=== PATIENT | female | born 1940 | race Caucasian/White ===

== ENCOUNTER 2024-04-28 22:23 | Inpatient (IN) | payer OTHER ==
[2024-04-28] MEDS ORDERED: WATER FOR INJ,STERILE 10 ML ONE (22:57)
[2024-04-28] MEDS ORDERED: MORPHINE 2 MG/ML SYR ONE (22:57)
[2024-04-28] MEDS ORDERED: ZIPRASIDONE MESYLA 20 MG/VIAL IM ONE (22:57)
[2024-04-28] MEDS ORDERED: ONDANSETRON 4 MG/2 ML VIAL ONE (22:57)
[2024-04-28] MEDS ORDERED: KETOROLAC 30 MG/ML INJ ONE (22:57)
[2024-04-29 01:14] LABS: Absolute Eosinophils 0.1 K/uL (0-0.5); Absolute Lymphocytes (CBC) 1.8 K/uL (0.7-4.9); Absolute Monocytes 0.7 K/uL (0.1-1.3); Absolute Neutrophil 2.7 K/uL (1.8-8.0); Basophils % 0.5 % (0-1.3); Hematocrit 32.7 % (36.0-45.0); Hemoglobin 11.1 g/dL (12.0-15.0); Lymphocytes % 34.1 % (15.3-44.8); MCH 31.7 pg (27.0-35.0); MCHC 33.9 g/dL (32.0-36.0); MCV 93.7 fL (80-100); MPV 8.3 fL (7.6-11.3); Monocytes % 13.3 % (3.3-12.3); Neutrophils % 50.1 % (41.7-73.7); Nucleated Red Blood Cells % 0.2 % (0-0); Platelets 101 thou/uL (152-406); RBC Red Blood Cell Count 3.49 M/uL (3.86-4.86); Red Cell Distribution Width 15.8 % (12.1-15.2)
[2024-04-29 01:15] LABS: PT Prothrombin Time 18.7 SECONDS (9.4-12.5); Protime INR 1.7
[2024-04-29 01:28] LABS: Albumin 2.9 g/dL (3.4-5.0); Albumin/Globulin Ratio 0.7 (1.1-1.8); Anion Gap 8.1 mEq/L (5.0-15.0); Bilirubin Total 0.6 mg/dL (0.2-1.0); Globulin 3.9 g/dL (2.3-3.5); Potassium 3.1 mEq/L (3.5-5.1); Protein, Total 6.8 g/dL (6.4-8.2)
[2024-04-29] MEDS ORDERED: NA CHLORIDE 0.9% 500 ML ONE ×2 (01:32→04:20)
--- NOTE | 2024-04-29 03:46 | EDPHYS ---
Physician Documentation [facility] Name: Nikole Mejia Age: 83 yrs Sex: Female : 1940 Arrival Date: 04/28/2024 Time: 22:23 Bed [id number] Private MD: ORALIA Physician Sandip Sims HPI: 04/28 22:30 This 83 yrs old Female presents to ER via Unassigned with complaints of Fall sp4 Injury. 04/29 03:38 Patient is a very pleasant, heavily demented 83-year-old female presents from nursing [facility] home [facility] for acute fall X 2 out of the bed. Attending MD Keiko Lang . Patient on arrival not able to provide coherent history. Patient is heavily demented and does not have any signs of acute traumatic injury but seems to be bothered by her left hip. Past medical history includes epilepsy, hypothyroidism, type 2 diabetes, encephalopathy, essential hypertension, atrial fibrillation, acute respiratory failure with hypoxia, GERD, muscle weakness, additional history includes dysphagia, unsteady gait, lack of coordination, cognitive communication deficit, history of bilateral mastectomy. Patient is full code. Patient's medications include amiodarone 200 mg, lisinopril 40 mg daily, apixaban 5 mg twice daily, Keppra 500 mg twice daily, metformin 500 mg twice daily, omeprazole 20 mg daily, levothyroxine 75 mcg daily, metoprolol 50 mg 3 times a day, furosemide 20 mg daily.. Historical: - Allergies: 04/28 22:52 PENICILLINS; dd2 22:52 Codeine; dd2 22:52 Acetaminophen; dd2 - PMHx: 22:52 epilepsy; Hypothyroidism; Diabetes mellitus; Hypertensive disorder; Atrial dd2 fibrillation; GERD; ENCEPHALOPATHY; DYSPHAGIA; COGNITIVE COMMUNICATION DEFICIT; - Immunization history:: Adult Immunizations unknown. - Infectious Disease History:: NONE NOTED ON CHART. - Social history:: Smoking status: unknown. - Family history:: not pertinent. ROS: 04/29 03:53 Constitutional: Negative for fever, chills, and weight loss, sp4 All other systems are negative, Exam: 03:53 Constitutional: This is a well developed, well nourished patient who is awake, alert, sp4 patient is heavily demented with mild to moderate agitation on exam. Head/Face: Normocephalic, atraumatic. Eyes: Pupils equal round and reactive to light, extra-ocular motions intact. Lids and lashes normal. Conjunctiva and sclera are not injected. Cornea within normal limits. Periorbital areas with no swelling, redness, or edema. ENT: Nares patent. No nasal discharge, no septal abnormalities noted. Tympanic membranes are normal and external auditory canals are clear. Oropharynx with no redness, swelling, or masses, exudates, or evidence of obstruction, uvula midline. Mucous membranes moist. Neck: Trachea midline, no thyromegaly or masses palpated, and no cervical lymphadenopathy. Supple, full range of motion without nuchal rigidity, or vertebral point tenderness. Chest/axilla: Normal chest wall appearance and motion. Nontender with no deformity. No lesions are appreciated. Cardiovascular: Regular rate and rhythm with a normal S1 and S2. No gallops, murmurs, or rubs. Normal PMI, no JVD. No pulse deficits. Respiratory: Lungs have equal breath sounds bilaterally, clear to auscultation and percussion. No rales, rhonchi or wheezes noted. No increased work of breathing, no retractions or nasal flaring. Abdomen/GI: Soft, with normal bowel sounds. No distension or tympany. No guarding or rebound. No evidence of tenderness throughout. Back: No spinal tenderness. No costovertebral tenderness. Skin: Warm, dry with normal turgor. Normal color with no rashes, no lesions, and no evidence of cellulitis. MS/ Extremity: Pulses equal, no cyanosis. Neurovascular intact. Full, normal range of motion. left hip tenderness Neuro: Awake and alert, not oriented, Motor strength 5/5 in all extremities. Exam is limited. 03:58 ECG was reviewed by the Attending Physician. EKG at 03:41 Atrial fibrillation rate sp4 68. Atrial fibrillation with PVCs rate 68. Vital Signs: 04/28 22:35 BP 117 / 79; Pulse 79; Resp 16; Temp 98.2; Pulse Ox 98% ; Weight 83.91 kg; Height 5 ft. dd2 5 in. ; 23:20 BP 106 / 76; Pulse 62; Resp 16; Pulse Ox 97% ; dd2 04/29 00:30 BP 104 / 62; Pulse 67; Resp 15; Pulse Ox 92% on 2 lpm NC; dd2 02:16 BP 104 / 68; Pulse 86; Resp 14; Pulse Ox 98% on 2 lpm NC; dd2 02:50 BP 88 / 68; Pulse 76; Resp 14; Pulse Ox 100% on 2 lpm NC; dd2 03:30 BP 94 / 62; Pulse 76; Resp 13; Pulse Ox 99% on 2 lpm NC; dd2 04:58 BP 106 / 81; Pulse 88; Resp 14; Pulse Ox 100% on R/A; dd2 04/28 22:35 Body Mass Index 30.79 (83.91 kg, 165.1 cm) dd2 Daniela Coma Score: 03:53 Eye Response: spontaneous(4). Motor Response: localizes pain(5). Verbal Response: sp4 inappropriate words(3). Total: 12. MDM: 04/28 22:30 Medical Screening Exam initiated sp4 04/29 03:35 ED course: EXAM DESCRIPTION: XR CHEST 1 VIEW 04/28/2024 11:32 PM [facility]GET[employer]TER CLINICAL HISTORY: sp4 83 years, Female, Fall, chest pain. COMPARISON: None. FINDINGS: 1 view of the chest (AP portable projection) was obtained. Prior films were compared. There is mild hyperinflation. Mediastinum: The cardiomediastinal silhouette appears normal in size and shape. Lungs: No areas of consolidations or masses are identified. Heart: The heart is in the upper normal size. Thoracic aorta: The thoracic aorta demonstrate to be tortuous. Pulmonary vasculature: The pulmonary vasculature is normal in distribution. Pleura: The costophrenic angles demonstrate to be sharp. Osseous structures: The bony structures demonstrate to be within normal limits. Other: None. IMPRESSION: No acute cardiopulmonary disease. Mild hyperinflation. Electronically signed by: Wicho Lopez MD 04/28/2024. ED course: EXAM DESCRIPTION: XR FEMUR 2 VIEWS LEFT 04/28/2024 11:31 PM [employer]GETABLE [employer]TER CLINICAL HISTORY: 83 years, Female, Left leg pain. COMPARISON: None. FINDINGS: 2 X-ray views of the left femur (frontal and lateral projections) were performed. Bones: No areas of acute bony injuries were demonstrated. Soft tissues: No significant soft tissue swelling. Joints: Minimal degenerative changes left knee joint. Others: There are no gross intraosseous lesions. No periosteal reaction were seen. No definitive displaced fracture are identified, if symptoms persist, clinical correlation and/or further evaluation with CT scan and/or MRI could be of assistance. IMPRESSION: No areas of acute bony injuries were demonstrated. Minimal degenerative changes left knee joint. . ED course: EXAM DESCRIPTION: XR PELVIS 1 VIEW 04/28/2024 11:30 PM [employer]GETABLE C[employer]TER CLINICAL HISTORY: 83 years, Female, Fall, pelvic pain. COMPARISON: None. FINDINGS: 1 X-ray views of the pelvis (frontal view of the pelvis was obtained. Bones: There is diffuse bony osteopenia The pelvic rim is intact. No areas of acute bony injuries were demonstrated. Joints: The joint demonstrate to be within normal limits. Minimal early degenerative changes anterior superior aspect of the acetabulum. Minimal degenerative changes lower lumbar spine Soft tissue: No gross soft tissue abnormality is identified. There are no gross intraosseous lesions. No periosteal reaction were seen. Other: No definitive displaced fracture are identified, if symptoms persist, clinical correlation and/or further evaluation with CT scan and/or MRI could be of assistance. IMPRESSION: No areas of acute bony injuries were demonstrated. Minimal early degenerative changes bilateral hip joints. Diffuse bony osteopenia. . 04:00 Differential diagnosis: abrasion, closed head injury, contusion, fracture, laceration, sp4 multiple trauma, sprain, strain. Data reviewed: vital signs, nurses notes, lab test result(s), EKG, radiologic studies. Consideration of Admission/Observation Escalation of care including admission/observation considered. Management of patient was discussed with the following: Hospitalist: BEL MUKHERJEE . 04:06 ED course: PROCEDURE: CT Head and Cervical Spine Without Intravenous Contrast CLINICAL sp4 INDICATION: The patient is 83 years old and is Female; Traumatic fall. TECHNIQUE: Axial computed tomography images of the head/brain and cervical spine without intravenous contrast. Sagittal and coronal reformatted images were created and reviewed. This CT exam was performed using one or more of the following dose reduction techniques: automated exposure control, adjustment of the mA and/or kV according to patient size, and/or use of iterative reconstruction technique. COMPARISON: None. 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 Mild bilateral periventricular and deep white matter microangiopathy changes. Mild global cerebral atrophy with commensurate sulcal and ventricular enlargement, not greater than expected for patient age. No extra-axial fluid collection. No intracranial hemorrhage. No focal martinez-white matter differentiation abnormality. MIDLINE SHIFT: No midline shift. VENTRICLES: See above. SKULL: See below. SINUSES: Unremarkable as visualized. No acute sinusitis. MASTOID AIR CELLS: Unremarkable as visualized. No mastoid effusion. VERTEBRAE: Small probable posterior disc osteophyte versus focal calcification of the posterior longitudinal ligament demonstrated at the C5-6 and C6-7 levels. No acute fracture or acute vertebral body height loss. No significant subluxation. DISCS/SPINAL CANAL/NEURAL FORAMINA: No acute findings. No transtentorial herniation. No significant bony spinal canal stenosis. OTHER BONES/JOINTS: Unremarkable as visualized. No fracture of the calvarium or visualized facial bones. SOFT TISSUES: Unremarkable No abnormal prevertebral soft tissue swelling. VASCULATURE: Dense calcification of the central intracranial arteries. OTHER FINDINGS: Dens is intact. No dislocation. Craniocervical orientation is normal. IMPRESSION: 1. Chronic and senescent changes with no acute intracranial abnormality. No fracture of the calvarium or visualized facial bones. 2. No acute abnormality of the cervical spine.. 04:40 ED course: CT report - No aortic aneurysm. LYMPH NODES: Unremarkable No enlarged lymph sp4 nodes. IMPRESSION: 1. Age-indeterminate compression deformity of the T6 vertebral body with near vertebra plana defect. No bony retropulsion into the adjacent thoracic spinal canal. Recommend further evaluation by dedicated thoracic spine CT or MRI (most sensitive, and evaluate for marrow edema). 2. Small volume anti dependent intraluminal gas within the urinary bladder lumen. Recommend clinical correlation with history of recent Lange catheterization. Otherwise cannot exclude a possible non visualized fistulous formation between the urinary bladder and adjacent vaginal canal. Clinical correlation recommended. No intramural gas or perivesicular inflammation to suggest emphysematous cystitis. 3. Otherwise, no acute abnormality of the chest, abdomen, or pelvis. 4. Cardiomegaly with biatrial enlargement. 5. Severe multivessel coronary artery calcifications. 6. Ectasia of the main pulmonary artery, measuring up to 4.4 cm, suggesting pulmonary hypertension. 7. Colonic diverticulosis without evidence of acute diverticulitis. 8. Serpiginous sclerotic changes within the posterior aspect of the left humeral head, favoring avascular necrosis.. 04/28 22:29 Order name: CBC with Diff; Complete Time: : sp4 04/28 22:29 Order name: CMP; Complete Time: : sp4 04/28 22:30 Order name: PT-INR; Complete Time: 01:30 sp4 04/29 03:32 Order name: Troponin High Sensitivity; Complete Time: 04:39 sp4 04/29 03:32 Order name: BNP; Complete Time: 04:39 sp4 04/29 03:56 Order name: T4 Free; Complete Time: 04:39 EDMS 04/29 03:56 Order name: Thyroid Stimulating Hormone; Complete Time: 04:39 EDMS 04/29 05:00 Order name: Urinalysis w/ reflexes EDMS 04/29 05:00 Order name: CBC with Automated Diff EDMS 04/29 05:00 Order name: CBC with Automated Diff EDMS 04/29 05:00 Order name: Comprehensive Metabolic Panel EDMS 04/29 05:00 Order name: Comprehensive Metabolic Panel EDMS 04/28 22:28 Order name: Pelvis XRAY sp4 04/28 22:29 Order name: Femur Left XRAY sp4 04/28 22:29 Order name: Chest Single View XRAY 4 04/28 22:30 Order name: CT Head C Spine; Complete Time: 04:39 sp4 04/28 22:30 Order name: CT Chest Abdomen Pelvis W/O Contrast sp4 04/29 03:32 Order name: EKG; Complete Time: 03:32 sp4 04/29 05:00 Order name: Physical Therapy Consult EDCA 04/28 22:29 Order name: Saline Lock; Complete Time: 22:45 sp4 04/28 22:29 Order name: IV Saline Lock; Complete Time: 22:45 sp4 04/28 22:29 Order name: Labs collected and sent; Complete Time: 22:45 sp4 04/28 23:03 Order name: Misc. Order: RECOLLECT all; Complete Time: 23:16 ty 04/29 03:32 Order name: EKG - Nurse/Tech; Complete Time: 04:10 sp4 EC:58 Rate is 68 beats/min. Rhythm is irregularly irregular, A fib with Occasional PVCs. QRS sp4 [place] is Normal. QRS interval is normal. QT interval is normal. No Q waves. T waves are Normal. No ST changes noted. Clinical impression: No evidence of ischemia. Interpreted by me. Reviewed by me. Administered Medications: 04/28 23:13 Drug: TORadol - Ketorolac IVP 15 mg IVP once Route: IVP; Site: left antecubital; bm8 23:28 Follow up: Response: No adverse reaction dd2 23:13 Drug: Geodon IM 20 mg IM once Route: IM; Site: left gluteus; bm8 23:28 Follow up: Response: No adverse reaction dd2 23:14 Drug: morphine IVP or IV 2 mg IVP once over 4 mins Route: IVP; Infused Over: 4 mins; bm8 Site: left antecubital; 23:29 Follow up: Response: No adverse reaction dd2 23:14 Drug: Ondansetron IVP 4 mg IVP once; over 2 minutes Route: IVP; Site: left antecubital; bm8 23:29 Follow up: Response: No adverse reaction dd2 04/29 01:36 Drug: NS 0.9% IV 500 ml IV at bolus once; to be given as a bolus over 30 minutes Route: dd2 IV; Rate: bolus; Site: right antecubital; 01:51 Follow up: Response: No adverse reaction dd2 02:06 Follow up: IV Status: Completed infusion; IV Intake: 500ml dd2 04:21 Drug: NS 0.9% IV 500 ml IV at bolus once; to be given as a bolus over 30 minutes Route: dd2 IV; Rate: bolus; Site: left antecubital; 04:36 Follow up: Response: No adverse reaction dd2 04:51 Follow up: IV Status: Completed infusion; IV Intake: 500ml dd2 04:28 Drug: Solu-CORTEF IVP 100 mg IVP once Route: IVP; Site: left antecubital; dd2 04:43 Follow up: Response: No adverse reaction dd2 04:29 Drug: Albumin IVPB 25 grams 100 ml IVPB once; (Note: Albumin 25% concentration) Volume: dd2 100 ml; Route: IVPB; Site: left antecubital; 04:44 Follow up: Response: No adverse reaction dd2 05:29 Follow up: IV Status: Completed infusion; IV Intake: 100ml dd2 05:38 Drug: Albumin IVPB 25 grams 100 ml IVPB once; (Note: Albumin 25% concentration) Volume: dd2 100 ml; Route: IVPB; Site: left antecubital; 05:53 Follow up: Response: No adverse reaction dd2 06:31 Follow up: IV Status: Completed infusion; IV Intake: 100ml dd2 Disposition Summary: 04/29/24 03:45 Hospitalization Ordered Notes: Hospitalization Status: Observation sp4 Provider: Edson [email or web address] Location: Telemetry/MedSurg (observation) sp4 Condition: Fair sp4 Problem: new sp4 Symptoms: have improved sp4 Bed/Room Type: Standard sp4 Room Assignment: 230(04/29/24 05:22) kl Diagnosis - Hypotension due to drugs sp4 - Acute Fall in [facility], Acute Agitation Requiring sedation, Hypotensive sp4 Episode secondary to Geodon, Left hip contusion, Atrial Fibrillation with RVR Forms: - Medication Reconciliation Form sp4 - SBAR form sp4 - Leadership Thank You Letter sp4 Signatures: Dispatcher [employer] EDMS Joseline Higginbotham RN RN Sandip Duong MD MD sp4 Homero Gomez Brad RN RN bm8 TRAVIS ESPINOSA RN RN dd2 Corrections: (The following items were deleted from the chart) 04/28 22:29 22:29 Pelvis+RAD.RAD.BRZ ordered. EDMS EDMS 04/29 03:55 03:43 THYROID STIMULAT HORMONE+C.LAB.BRZ ordered. EDMS EDMS 03:55 03:43 T4 FREE+C.LAB.BRZ ordered. EDCA EDMS 05:22 03:45 sp4 kl
--- NOTE | 2024-04-29 03:46 | ER ---
Nurse's Notes [facility] Name: Nikole Mejia Age: 83 yrs Sex: Female : 1940 Arrival Date: 04/28/2024 Time: 22:23 Bed [id number] Private MD: Diagnosis: Hypotension due to drugs;Acute Fall in Shelter, Acute Agitation Requiring sedation, Hypotensive Episode secondary to Geodon, Left hip contusion, Atrial Fibrillation with RVR Presentation: 04/28 22:35 Chief complaint: EMS states: Pt brought in via EMS from [facility] for fall x2. 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 Pt c/o Left Leg/thigh pain and Left sided head pain. Pt is AAOX2 baseline. Coronavirus screen: At this time, the client does not indicate any symptoms associated with coronavirus-19. Ebola Screen: No symptoms or risks identified at this time. Initial Sepsis Screen: Does the patient meet any 2 criteria? No. Patient's initial sepsis screen is negative. Does the patient have a suspected source of infection? No. Patient's initial sepsis screen is negative. Risk Assessment: Do you want to hurt yourself or someone else? Patient reports no desire to harm self or others. Onset of symptoms was April 28, 2024. 22:35 Method Of Arrival: EMS: [facility] dd2 22:35 Acuity: YECENIA 3 dd2 Triage Assessment: 22:52 General: Appears uncomfortable, Behavior is calm, cooperative. Pain: Complains of pain dd2 in left scientologist and left leg Unable to use pain scale. Does not appear to understand pain scale. EENT: No deficits noted. No signs and/or symptoms were reported regarding the EENT system. Neuro: Level of Consciousness is awake, alert, obeys commands, confused, Oriented to person, Facial symmetry appears normal, Facial symmetry: tongue is midline. Cardiovascular: Heart tones S1 S2 present Patient's skin is warm and dry. Respiratory: No deficits noted. Airway is patent Respiratory effort is even, unlabored, Respiratory pattern is regular, symmetrical. GI: No signs and/or symptoms were reported involving the gastrointestinal system. Abdomen is non-distended, Bowel sounds present X 4 quads. Abd is soft and non tender. : No signs and/or symptoms were reported regarding the genitourinary system. Derm: No signs and/or symptoms reported regarding the dermatologic system. Musculoskeletal: Circulation, motion, and sensation intact. Range of motion: limited in left hip Reports pain in left leg. Historical: - Allergies: 22:52 PENICILLINS; dd2 22:52 Codeine; dd2 22:52 Acetaminophen; dd2 - PMHx: 22:52 epilepsy; Hypothyroidism; Diabetes mellitus; Hypertensive disorder; Atrial dd2 fibrillation; GERD; ENCEPHALOPATHY; DYSPHAGIA; COGNITIVE COMMUNICATION DEFICIT; - Immunization history:: Adult Immunizations unknown. - Infectious Disease History:: NONE NOTED ON CHART. - Social history:: Smoking status: unknown. - Family history:: not pertinent. Screenin:00 [facility] ED Fall Risk Assessment (Adult) History of falling in the last 3 months, dd2 including since admission Yes- physiologic fall (2 pts) Confusion or Disorientation Yes (5 pts) Intoxicated or Sedated No (0 pts) Impaired Gait Yes (1 pt) Mobility Assist Device Used Yes (1 pt) Altered Elimination Yes (1 pt) Score/Fall Risk Level 3 or more points = High Risk Oriented to surroundings, Maintained a safe environment, Educated pt \T\ family on fall prevention, incl call for assistance when getting out of bed, Assessed \T\ reinforced patient's understanding of fall precautions, Hourly rounding (assess needs \T\ fall precautionary measures) done, Implemented a Fall Risk Plan of Care, Apply high fall risk patient identification: yellow non skid footwear/ fall signage. Abuse screen: Denies threats or abuse. Nutritional screening: No deficits noted. Tuberculosis screening: No symptoms or risk factors identified. Assessment: 23:00 Reassessment: SEE TRIAGE NOTE FOR FULL ASSESSMENT. dd2 04/29 02:17 Reassessment: Patient and/or family updated on plan of care and expected duration. Pain dd2 level reassessed. Pt resting quietly at this time. Respirations even and unlabored. NAD noted. 05:14 Reassessment: Pt resting quietly. Respirations even and unlabored. Skin warm and dry. dd2 BP improved. NAD noted. Vital Signs: 04/28 22:35 BP 117 / 79; Pulse 79; Resp 16; Temp 98.2; Pulse Ox 98% ; Weight 83.91 kg; Height 5 ft. dd2 5 in. ; 23:20 BP 106 / 76; Pulse 62; Resp 16; Pulse Ox 97% ; dd2 04/29 00:30 BP 104 / 62; Pulse 67; Resp 15; Pulse Ox 92% on 2 lpm NC; dd2 02:16 BP 104 / 68; Pulse 86; Resp 14; Pulse Ox 98% on 2 lpm NC; dd2 02:50 BP 88 / 68; Pulse 76; Resp 14; Pulse Ox 100% on 2 lpm NC; dd2 03:30 BP 94 / 62; Pulse 76; Resp 13; Pulse Ox 99% on 2 lpm NC; dd2 04:58 BP 106 / 81; Pulse 88; Resp 14; Pulse Ox 100% on R/A; dd2 04/28 22:35 Body Mass Index 30.79 (83.91 kg, 165.1 cm) dd2 [place] Coma Score: 03:53 Eye Response: spontaneous(4). Motor Response: localizes pain(5). Verbal Response: sp4 inappropriate words(3). Total: 12. ED Course: 04/28 22:25 Patient arrived in ED. rv1 22:28 Sandip Sims MD is Attending Physician. sp4 22:44 TRAVIS ESPINOSA RN is Primary Nurse. dd2 22:52 Triage completed. dd2 22:52 Arm band placed on right wrist. Patient placed in an exam room, on a stretcher, on dd2 pulse oximetry. 22:58 Pelvis XRAY In Process Unspecified. EDMS 22:58 Femur Left XRAY In Process Unspecified. EDMS 22:58 Chest Single View XRAY In Process Unspecified. EDMS 23:00 Patient has correct armband on for positive identification. Allergy band placed. Bed in dd2 low position. Call light in reach. Side rails up X2. Client placed on continuous cardiac and pulse oximetry monitoring. NIBP monitoring applied. Door closed. Noise minimized. Warm blanket given. Pillow given. Verbal reassurance given. 23:00 No provider procedures requiring assistance completed. Initial lab(s) drawn, by me, dd2 sent to lab. Inserted saline lock: 20 gauge in left antecubital area, using aseptic technique. Blood collected. Flushed with 10 mL NS. Patient maintains SpO2 saturation greater than 95% on room air. 23:16 PT-INR Sent. rv1 04/29 00:49 CT Head C Spine In Process Unspecified. EDMS 00:49 CT Chest Abdomen Pelvis W/O Contrast In Process Unspecified. EDMS 01:04 Inserted saline lock: 22 gauge in right antecubital area, using aseptic technique. rv1 Blood collected. Flushed with 10 mL NS. 03:43 Edson Mccauley MD is Hospitalizing Provider. sp4 04:05 Removal of peripheral IV. Catheter intact, dressing applied. dd2 04:09 Thyroid Stimulating Hormone Sent. dd2 04:09 T4 Free Sent. dd2 04:11 BNP Sent. dd2 04:11 Troponin High Sensitivity Sent. dd2 04:11 Inserted saline lock: 22 gauge in left antecubital area, using aseptic technique. Blood dd2 collected. Flushed with 10 mL NS Missed attempt(s): 22 gauge in left antecubital area. Bleeding controlled, band aid applied, catheter tip intact. 06:10 Provided Education on: call light, medications. Report given to SBAR SENT TO [facility] yan 2ND FLOOR. Administered Medications: 04/28 23:13 Drug: TORadol - Ketorolac IVP 15 mg IVP once Route: IVP; Site: left antecubital; bm8 23:28 Follow up: Response: No adverse reaction dd2 23:13 Drug: Geodon IM 20 mg IM once Route: IM; Site: left gluteus; bm8 23:28 Follow up: Response: No adverse reaction dd2 23:14 Drug: morphine IVP or IV 2 mg IVP once over 4 mins Route: IVP; Infused Over: 4 mins; bm8 Site: left antecubital; 23:29 Follow up: Response: No adverse reaction dd2 23:14 Drug: Ondansetron IVP 4 mg IVP once; over 2 minutes Route: IVP; Site: left antecubital; bm8 23:29 Follow up: Response: No adverse reaction dd2 04/29 01:36 Drug: NS 0.9% IV 500 ml IV at bolus once; to be given as a bolus over 30 minutes Route: dd2 IV; Rate: bolus; Site: right antecubital; 01:51 Follow up: Response: No adverse reaction dd2 02:06 Follow up: IV Status: Completed infusion; IV Intake: 500ml dd2 04:21 Drug: NS 0.9% IV 500 ml IV at bolus once; to be given as a bolus over 30 minutes Route: dd2 IV; Rate: bolus; Site: left antecubital; 04:36 Follow up: Response: No adverse reaction dd2 04:51 Follow up: IV Status: Completed infusion; IV Intake: 500ml dd2 04:28 Drug: Solu-CORTEF IVP 100 mg IVP once Route: IVP; Site: left antecubital; dd2 04:43 Follow up: Response: No adverse reaction dd2 04:29 Drug: Albumin IVPB 25 grams 100 ml IVPB once; (Note: Albumin 25% concentration) Volume: dd2 100 ml; Route: IVPB; Site: left antecubital; 04:44 Follow up: Response: No adverse reaction dd2 05:29 Follow up: IV Status: Completed infusion; IV Intake: 100ml dd2 05:38 Drug: Albumin IVPB 25 grams 100 ml IVPB once; (Note: Albumin 25% concentration) Volume: dd2 100 ml; Route: IVPB; Site: left antecubital; 05:53 Follow up: Response: No adverse reaction dd2 06:31 Follow up: IV Status: Completed infusion; IV Intake: 100ml dd2 Medication: 04/28 23:20 VIS not applicable for this client. dd2 Intake: 1106 02:06 IV: 500ml; Total: 500ml. dd2 04:51 IV: 500ml; Total: 1000ml. dd2 05:29 IV: 100ml; Total: 1100ml. dd2 06:31 IV: 100ml; Total: 1200ml. dd2 Outcome: 03:45 Decision to Hospitalize by Provider. sp4 06:39 Admitted to Med/surg accompanied by nurse, via stretcher, room 230, with chart, dd2 06:39 Condition: stable 06:39 Instructed on the need for admit, 06:40 Patient left the ED. dd2 Signatures: Dispatcher [employer] EDNani Delgado Sergey, MD MD sp4 Sumanth Amezquita RN RN bm8 TRAVIS ESPINOSA RN RN dd2 Corrections: (The following items were deleted from the chart) 04:16 02:16 BP 104 / 68; Pulse 86bpm; Resp 14bpm; Pulse Ox 98%; dd2 dd2 04:16 00:30 BP 104 / 62; Pulse 67bpm; Resp 15bpm; Pulse Ox 92%; dd2 dd2 04:16 02:50 BP 88 / 68; Pulse 76bpm; Resp 14bpm; Pulse Ox 100%; dd2 dd2
[2024-04-29 03:48] LABS: Troponin High Sensitivity 16.1 pg/mL (<58.9)
--- NOTE | 2024-04-29 04:07 | RAD REPORT ---
PROCEDURE: CT Head and Cervical Spine Without Intravenous Contrast CLINICAL INDICATION: The patient is 83 years old and is Female; Traumatic fall. TECHNIQUE: Axial computed tomography images of the head/brain and cervical spine without intravenous contrast. Sagittal and coronal reformatted images were created and reviewed. This CT exam was performed using one or more of the following dose reduction techniques: automated exposure control, adjustmen t of the mA and/or kV according to patient size, and/or use of iterative reconstruction technique. COMPARISON: None. 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 Mild bilateral periventricular and deep white matter microangiopathy changes. Mild global cerebral atrophy with commensurate sulcal and ventricular enlargement, not greate r than expected for patient age. No extra-axial fluid collection. No intracranial hemorrhage. No focal martinez-white matter differentiation abnormality. MIDLINE SHIFT: No midline shift. VENTRICLES: See above. SKULL: See below. SINUSES: Unremarkable as visualized. No acute sinusitis. MASTOID AIR CELLS: Unremarkable as visualized. No mastoid effusion. VERTEBRAE: Small probable posterior disc osteophyte versus focal calcification of the posterior lyn gitudinal ligament demonstrated at the C5-6 and C6-7 levels. No acute fracture or acute vertebral body height loss. No significant subluxation. DISCS/SPINAL CANAL/NEURAL FORAMINA: No acute findings. No transtentorial herniation. No significant bony spinal canal stenosis. OTHER BONES/JOINTS: Unremarkable as visualized. No fracture of the calvarium or visualized facial bones. SOFT TISSUES: Unremarkable No abnormal prevertebral soft tissue swelling. VASCULATURE: Dense calcification of the central intracranial arteries. OTHER FINDINGS: Dens is intact. No dislocation. Craniocervical orientation is normal. IMPRESSION: 1. Chronic and senescent changes with no acute intracranial abnormality. No fracture of the calvari um or visualized facial bones. 2. No acute abnormality of the cervical spine. Electronically signed by: Milton Brown MD 04/29/2024 04:03 AM [facility] Due to temporary technical issues with the PACS/[employer] reporting system, reports are being mony d by the in-house radiologist without review as a courtesy to ensure prompt reporting the interpreting radiologist is fully responsible for the content of the report. Transcribed Date/Time: 04/29/2024 4:06 AM
[2024-04-29] MEDS ORDERED: HYDROCORTISONE SUC 100 MG INJ ONE (04:19)
[2024-04-29] MEDS ORDERED: ALBUMIN HUMAN 25% 100 ML IV ONE ×2 (04:20→04:47)
[2024-04-29 04:37] LABS: Thyroid Stimulating Hormone 7.76 uIU/mL (0.358-3.740)
--- NOTE | 2024-04-29 04:53 | P.HP ---
Certification for Inpatient Patient admitted to: Observation With expected LOS: <2 Midnights Practitioner: I am a practitioner with admitting privileges, knowledge of patient current condition, hospital course, and medical plan of care. Services: Services provided to patient in accordance with Admission requirements found in Title 42 Section 412.3 of the Code of Federal Regulations Patient History Date of Service: 04/29/24 Reason for admission: Fall History of Present Illness: 83 yrs old Female with past medical history of dementia, seizure disorder, hypothyroidism, diabetes, hypertension, atrial fibrillation, GERD, encephalopathy, dysphagia, cognitive communication deficit was brought from alf where she had multiple falls. Patient has dementia and is pleasa ntly confused and has not been able to give any history. Hence most of the history is obtained from the chart review and also talking to the ER physician. Patient denies any pain. Denies any chest pain or shortness of breath. No fever nausea vomiting or diarrhea. Patient was assessed in the ER for trauma workup which were negative. Patient had a hypotensive event following medication and was admitted for close monitoring. Denies any fever or chills. Patient responded well to IV fluids and albumin and has been doing better while in the ER. Patient is full code. - Past Medical/Surgical History Past Medical History: Reviewed- Non-Contributory -: epilepsy; Hypothyroidism; Diabetes mellitus; Hypertensive disorder Past Surgical History: Reviewed- Non-Contributory - Family History Family History: Reviewed- Non-Contributory - Social History Smoking Status: Never smoker Review of Systems is unable to be obtained Physical Examination - Vital Signs Temperature: 97.2 F Blood Pressure: 106/72 Pulse: 84 Respirations: 18 Pulse Ox (%): 94 - Physical Exam General: Alert, Demented HEENT: Atraumatic, Normocephalic Neck: Supple Respiratory: Clear to auscultation bilaterally, Normal air movement Cardiovascular: Regular rate/rhythm, Normal S1 S2 Capillary refill: <2 Seconds Gastrointestinal: Soft and benign, W/out hepatosplenomegaly Musculoskeletal: No clubbing, No swelling Integumentary: No rashes Neurological: Other (Alert, Awake ), Dementia Lymphatics: No axilla or inguinal lymphadenopathy - Studies Laboratory Data (last 24 hrs) 04/29/24 04/29/24 04/29/24 01:01 01:01 01:01 WBC 5.40 Hgb 11.1 L Hct 32.7 L Plt Count 101 L PT 18.7 H INR 1.70 Sodium 143 Potassium 3.1 L BUN 29 H Creatinine 1.58 H Glucose 99 Total Bilirubin 0.6 AST 23 ALT 31 Alkaline Phosphatase 69 Assessment and Plan - Plan Multiple falls Pain control CT findings negative for any acute fracture PT eval Hypotensive episode Resolved with fluids Monitor closely History of hypertension Antihypertensives held for now MIKAEL Hypokalemia Monitor renal parameters Electrolytes monitor and replace accordingly Diabetes Insulin sliding scale Accu-Chek before every meal and at bedtime Advanced dementia Supportive management Continue home medications Seizure disorder, Continue home medications Hypothyroidism TSH level monitor Titrate Synthroid GI/DVT prophylaxis Advanced directive full code Discharge Plan: Usp Plan to discharge in: 24 Hours - Advance Directives Does patient have a Living Will: No Does patient have a Durable POA for Healthcare: No - Code Status/Comfort Care Code Status: Full Code Time Spent Managing Pts Care (In Minutes): 48
[2024-04-29] MEDS ORDERED: ONDANSETRON 4 MG/2 ML VIAL IV PRN (04:55)
--- NOTE | 2024-04-29 05:53 | RAD REPORT ---
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 COMPARISON: None. FINDINGS: 1 view of the chest (AP portable projection) was obtained. Prior films were compared. There is mild hyperinflation. Mediastinum: The cardiomediastinal silhouette appears normal in size and shape. Lungs: No areas of consolidations or masses are identified. Heart: The heart is in the upper normal size. Thoracic aorta: The thoracic aorta demonstrate to be tortuous. Pulmonary vasculature: The pulmonary vasculature is normal in distribution. Pleura: The costophrenic angles demonstrate to be sharp. Osseous structures: The bony structures demonstrate to be within normal limits. Other: None. IMPRESSION: No acute cardiopulmonary disease. Mild hyperinflation. Electronically signed by: Wicho Lopez MD 04/28/2024 11:48 PM WORK MEASUREMENT ENGINEER Due to temporary technical issues with the PACS/[employer] reporting system, reports are being mony d by the in-house radiologist without review as a courtesy to ensure prompt reporting the interpreting radiologist is fully responsible for the content of the report. Transcribed Date/Time: 04/29/2024 5:53 AM
--- NOTE | 2024-04-29 05:53 | RAD REPORT ---
EXAM DESCRIPTION: XR FEMUR 2 VIEWS LEFT 04/28/2024 11:31 PM [facility] CLINICAL HISTORY: 83 years, Female, Left leg pain. COMPARISON: None. FINDINGS: 2 X-ray views of the left femur (frontal and lateral projections) were performed. Bones: No areas of acute bony injuries were demonstrated. Soft tissues: No significant soft tissue swelling. Joints: Minimal degenerative changes left knee joint. Others: There are no gross intraosseous lesions. No periosteal reaction were seen. No definitive di splaced fracture are identified, if symptoms persist, clinical correlation and/or further evaluation with CT scan and/or MRI could be of assistance. IMPRESSION: No areas of acute bony injuries were demonstrated. Minimal degenerative changes left knee joint. Electronically signed by: Wicho Lopez MD 04/28/2024 11:43 PM [facility] Due to temporary technical issues with the PACS/[employer] reporting system, reports are being mony d by the in-house radiologist without review as a courtesy to ensure prompt reporting the interpreting radiologist is fully responsible for the content of the report. Transcribed Date/Time: 04/29/2024 5:53 AM
--- NOTE | 2024-04-29 05:54 | RAD REPORT ---
EXAM DESCRIPTION: XR PELVIS 1 VIEW 04/28/2024 11:30 PM UPPER CUTTER OUT CLINICAL HISTORY: 83 years, Female, Fall, pelvic pain. COMPARISON: None. FINDINGS: 1 X-ray views of the pelvis (frontal view of the pelvis was obtained. Bones: There is diffuse bony osteopenia The pelvic rim is intact. No areas of acute bony injuries wer e demonstrated. Joints: The joint demonstrate to be within normal limits. Minimal early degenerative changes anterior superior aspect of the acetabulum. Minimal degenerative changes lower lumbar spine Soft tissue: No gross soft tissue abnormality is identified. There are no gross intraosseous lesion s. No periosteal reaction were seen. Other: No definitive displaced fracture are identified, if symptoms persist, clinical correlation and /or further evaluation with CT scan and/or MRI could be of assistance. IMPRESSION: No areas of acute bony injuries were demonstrated. Minimal early degenerative changes bilateral hip joints. Diffuse bony osteopenia. Electronically signed by: Wicho Lopez MD 04/28/2024 11:36 PM [facility] Due to temporary technical issues with the PACS/[employer] reporting system, reports are being mony d by the in-house radiologist without review as a courtesy to ensure prompt reporting the interpreting radiologist is fully responsible for the content of the report. Transcribed Date/Time: 04/29/2024 5:54 AM
--- NOTE | 2024-04-29 06:12 | RAD REPORT ---
PROCEDURE: CT Chest, Abdomen and Pelvis Without Intravenous Contrast CLINICAL INDICATION: The patient is 83 years old and is Female; Traumatic fall. TECHNIQUE: Axial computed tomography images of the chest, abdomen and pelvis without intravenous contrast. Sag ittal and coronal reformatted images were created and reviewed. This CT exam was performed using one or more of the following dose reduction techniques: automated exposure control, adjustment of t he mA and/or kV according to patient size, and/or use of iterative reconstruction technique. COMPARISON: XR Pelvis 04/28/2024 and XR Chest 04/28/2024. FINDINGS: CHEST: LUNGS: Subsegmental atelectasis noted in the dependent right lung parenchyma, with patient lying on right side. No additional focal consolidation. No mass. PLEURAL SPACE: Unremarkable No significant effusion. No pneumothorax. HEART: Cardiomegaly with biatrial enlargement. ABDOMEN: LIVER: Unremarkable GALLBLADDER AND BILE DUCTS: Unremarkable No calcified stones. No ductal dilation. PANCREAS: Diffusely atrophic appearance of the pancreas with no ductal dilatation or solid or cysti c mass appreciated. SPLEEN: Unremarkable No splenomegaly. ADRENALS: Unremarkable No mass. KIDNEYS AND URETERS: Unremarkable No obstructing stones. No hydronephrosis. STOMACH AND BOWEL: Colonic diverticulosis without evidence of acute diverticulitis. No obstruction. PELVIS: APPENDIX: No findings to suggest acute appendicitis. BLADDER: Small volume antidependent intraluminal gas within the urinary bladder lumen. No stones. REPRODUCTIVE: Presumed hysterectomy. CHEST, ABDOMEN and PELVIS: INTRAPERITONEAL SPACE: Unremarkable No significant fluid collection. No free air. BONES/JOINTS: Remote fracture of the right coracoid process. Remote fracture of the lateral aspect of the right clavicle. Age-indeterminate compression deformity of the T6 vertebral body with near vertebra plana def ect. No bony retropulsion into the adjacent thoracic spinal canal. Serpiginous sclerotic changes within the posterior aspect of the left humeral head, favoring avascular necrosis. No dislocation. SOFT TISSUES: Unremarkable VASCULATURE: Severe multivessel coronary artery calcifications. Ectasia of the main pulmonary artery, measuring up to 4.4 cm, suggesting pulmonary hypertensi on. No aortic aneurysm. LYMPH NODES: Unremarkable No enlarged lymph nodes. IMPRESSION: 1. Age-indeterminate compression deformity of the T6 vertebral body with near vertebra plana defect . No bony retropulsion into the adjacent thoracic spinal canal. Recommend further evaluation by dedicated thoracic spine CT or MRI (most sensitive, and evaluate for marrow edema). 2. Small volume antidependent intraluminal gas within the urinary bladder lumen. Recommend clinical correlation with history of recent Lange catheterization. Otherwise cannot exclude a possible nonvisualized fistulous formation between the urinary bladder and adjacent vaginal canal. Clinical co rrelation recommended. No intramural gas or perivesicular inflammation to suggest emphysematous cystitis. 3. Otherwise, no acute abnormality of the chest, abdomen, or pelvis. 4. Cardiomegaly with biatrial enlargement. 5. Severe multivessel coronary artery calcifications. 6. Ectasia of the main pulmonary artery, measuring up to 4.4 cm, suggesting pulmonary hypertension. 7. Colonic diverticulosis without evidence of acute diverticulitis. 8. Serpiginous sclerotic changes within the posterior aspect of the left humeral head, favoring torsten scular necrosis. Electronically signed by: Milton Brown MD 04/29/2024 04:23 AM [facility] Due to temporary technical issues with the PACS/[employer] reporting system, reports are being mony d by the in-house radiologist without review as a courtesy to ensure prompt reporting the interpreting radiologist is fully responsible for the content of the report. Transcribed Date/Time: 04/29/2024 6:12 AM
[2024-04-29] MEDS: NA CHLORIDE 0.9% 1,000 ML IV SCH (09:09)
--- NOTE | 2024-04-29 12:04 | P.PN ---
Date of Service: 04/29/24 Brief internal medicine note Patient was examined, medical record reviewed 83 yrs old Female with past medical history of advanced dementia, seizure disorder, hypothyroidism, diabetes, hypertension, atrial fibrillation, GERD, she was brought from longterm where she had multiple falls, no fracture or acute injury by imaging study at ED, noted to have 1 episode of hypotension with blood pressure 88/68 mmHg, received IV albumin and admitted on general medical floor for observation. 1. Recent falls No fracture or injury by CT of head, C-spine, chest, abdomen, pelvis, prescription x-ray of pelvis and femur, chest x-ray #2 an episode of hypotension, resolved Systolic blood pressure over 100 mmHg since admission after IV albumin Continue monitor, hold any hypertensive agents #3 altered mental status in the setting of advanced dementia Nonverbal and uncommunicable, normal CT of the head at ED, no sign of metabolic encephalopathy or serious infection Could be at her baseline due to advanced dementia #4 mild hypokalemia Serum potassium 3.1, will repeat electrolytes tomorrow after oral potassium 40 mEq p.o. x 1 DVT prophylaxis; sequential compression device Disposition; plan to send her back to longterm tomorrow if her blood pressure remains stable
[2024-04-29 12:09] LABS: Specific Gravity 1.016 (1.005-1.030); Sqamous Epithelial <5 /HPF (None Seen); Urine Bacteria 20-50 /HPF (<20); Urine Bilirubin NEGATIVE (Negative); Urine Blood Negative (Negative); Urine Clarity Extremely Turbid (Clear); Urine Color Yellow (Yellow); Urine Culture Reflex Order REFLEXED; Urine Glucose NEGATIVE (Negative); Urine Ketones NEGATIVE (Negative); Urine Microscopic Reflex YN ORDER UMIC; Urine Mucus Slight /HPF (None Seen); Urine Nitrite NEGATIVE (Negative); Urine Protein TRACE (Negative); Urine Urobilinogen Normal (Normal); Urine WBC 20-50 /HPF (<5)
[2024-04-29] MEDS: POTASSIUM CL SA 10 MEQ TAB PO ONE (15:45)
[2024-04-29] MEDS: ACETAMINOPHEN 325 MG TABLET PO PRN (23:52)
[2024-04-30 04:28] VITALS: TEMP 97.8
[2024-04-30 05:22] LABS: Absolute Eosinophils 0.1 K/uL (0-0.5); Absolute Lymphocytes (CBC) 1.7 K/uL (0.7-4.9); Absolute Monocytes 0.7 K/uL (0.1-1.3); Absolute Neutrophil 2.5 K/uL (1.8-8.0); Basophils % 0.5 % (0-1.3); Eosinophils % 1.4 % (0-4.4); Hematocrit 26.8 % (36.0-45.0); MCH 31.7 pg (27.0-35.0); MCHC 33.6 g/dL (32.0-36.0); MCV 94.5 fL (80-100); MPV 8.9 fL (7.6-11.3); Monocytes % 13.2 % (3.3-12.3); Neutrophils % 49.9 % (41.7-73.7); Platelets 75 thou/uL (152-406); RBC Red Blood Cell Count 2.83 M/uL (3.86-4.86); Red Cell Distribution Width 15.7 % (12.1-15.2)
[2024-04-30 05:41] LABS: Albumin 2.8 g/dL (3.4-5.0); Albumin/Globulin Ratio 0.9 (1.1-1.8); Anion Gap 5.7 mEq/L (5.0-15.0); Bilirubin Total 0.5 mg/dL (0.2-1.0); Potassium 3.7 mEq/L (3.5-5.1); Protein, Total 5.8 g/dL (6.4-8.2)
[2024-04-30 07:13] VITALS: BMI 30.7
[2024-04-30] MEDS: POTASSIUM 25 MEQ EFFERV TAB PO ONE (08:06)
--- NOTE | 2024-04-30 09:58 | P.DS ---
Admission Date: 04/30/24 Discharge Date: 04/30/24 Disposition: TRANSFER TO DETENTION Discharge Condition: GOOD Reason for Admission: Fall Brief History of Present Illness: 83 yrs old Female with past medical history of advanced dementia, seizure disorder, hypothyroidism, diabetes, hypertension, atrial fibrillation, GERD, she was brought from group home where she had multiple falls, no fracture or acute injury by imaging study at ED, noted to have 1 episode of hypotension with blood pressure 88/68 mmHg, received IV albumin and admitted on general medical floor for observation. Hospital Course: 1. Recent falls No fracture or injury by CT of head, C-spine, chest, abdomen, pelvis, prescription x-ray of pelvis and femur, chest x-ray #2 an episode of asymptomatic hypotension, resolved Her hypertensive medication and apixaban were held and started IV fluid Systolic blood pressure over 100 mmHg since admission during observation Her blood pressure remained stable off IV fluid #3 mild hypokalemia Serum potassium 3.1, corrected after oral potassium 40 mEq p.o. x 1 #4 asymptomatic bacteriuria No indication for treatment #4 dilutional anemia Hemoglobin down to 9 from 11 after IV hydration, no sign of clinical bleeding, no transfusion indicated She is a long-term resident of her group home. It was advised to discontinue apixaban, furosemide, metformin and losartan. Her metoprolol titrate dose was decreased to 50 mg twice daily. she is sent back to her group home. Vital Signs/Physical Exam: Temp Pulse Resp BP Pulse Ox 97.8 F 91 H 16 105/56 L 97 04/30/24 08:00 04/30/24 08:00 04/30/24 08:00 04/30/24 08:00 04/30/24 08:00 Other Physical/Emotional Findings: Physical Exam on discharge day. General: N ot acutely ill looking, in no apparent distress,. HEENT: Normocephalic, atraumatic,. Neck: Supple, without JVD or goiter or thyroid mass. Respiratory: Normal breathing effort, clear to auscultation bilaterally, no crackles no wheezing or rhonchi. Cardiovascular: Regular rate and rhythm, S1, S2 normal, no murmur no gallop. Gastrointestinal: Normal bowel sounds, nondistended, nontender, No ascites, , No masses, no hepatosplenomegaly. Musculoskeletal: No clubbing, No peripheral edema. Integumentary: No rashes. Lymphatics: No axilla or cervical lymphadenopathy. Neurology; alert awake o riented x1, which seems her baseline , no focal neurologic deficit Laboratory Data at Discharge: WBC 4.90 thou/uL (4.3-10.9) 04/30/24 04:59 Hgb 9.0 g/dL (12.0-15.0) L D 04/30/24 04:59 Hct 26.8 % (36.0-45.0) L 04/30/24 04:59 Plt Count 75 thou/uL (152-406) L 04/30/24 04:59 PT 18.7 SECONDS (9.4-12.5) H 04/29/24 01:01 INR 1.70 04/29/24 01:01 Sodium 141 mEq/L (136-145) 04/30/24 04:59 Potassium 3.7 mEq/L (3.5-5.1) D 04/30/24 04:59 BUN 26 mg/dL (7-18) H 04/30/24 04:59 Creatinine 1.39 mg/dL (0.55-1.02) H 04/30/24 04:59 Glucose 97 mg/dL (74-106) 04/30/24 04:59 Total Bilirubin 0.5 mg/dL (0.2-1.0) 04/30/24 04:59 AST 20 U/L (15-37) 04/30/24 04:59 ALT 21 U/L (13-56) 04/30/24 04:59 Alkaline Phosphatase 54 U/L (45-117) D 04/30/24 04:59 Home Medications: RX: Amiodarone HCl [Cordarone*] 200 mg PO DAILY 04/29/24 RX: Levothyroxine [Synthroid*] 75 mcg PO DAILY 04/29/24 RX: levETIRAcetam [Keppra] 5 ml PO BID 04/29/24 RX: Metoprolol Tartrate 50 mg PO BID #30 04/30/24 New Medications: RX: Metoprolol Tartrate 50 mg PO BID #30 Physician Discharge Instructions: Patient will be discharged back to her group home. Apixaban, metformin, furosemide will be discontinued for frequent fall and episodes of hypotension Followup: Keiko Lang MD [Primary Care Provider] - 1-2 Weeks
[2024-04-30 13:19] VITALS: BP 117/77
[2024-04-30 14:39] VITALS: O2SAT 96
[2024-04-30] MEDS ORDERED: levETIRAcetam 500 MG/5 ML OSYR FT SCH (21:00)
[2024-04-30] MEDS ORDERED: Mupirocin NASAL 2 APPL/1 GM TUBE NAS SCH (21:00)
[2024-04-30] MEDS ORDERED: Meropenem 1,000 MG in NA CHLORIDE 0.9% 100 ML IV SCH (21:00)
[2024-04-30] MEDS ORDERED: METOPROLOL TAR 50 MG TAB PO SCH (21:00)
[2024-05-01] MEDS ORDERED: LEVOTHYROXINE SOD 0.075 MG TAB PO SCH (06:30)
[2024-05-01] MEDS ORDERED: AMIODARONE HCL 200 MG TAB PO SCH (09:00)
--- NOTE | 2024-05-01 15:12 | EKG ---
Test Date: 2024-04-29 Test Time: 03:41:21 Labor And Delivery Nurse: KAVIN MEASUREMENT RESULTS: Intervals: Rate: 68 OK: QRSD: 84 QT: 376 QTc: 399 [place]: P: OK: QRS: 46 T: -34 INTERPRETIVE STATEMENTS: Atrial fibrillation with premature ventricular or aberrantly conducted complexes Low voltage QRS Cannot rule out Anterior infarct, age undetermined Abnormal ECG No previous ECG available for comparison Electronically Signed On 05-01-24 15:08:03 DITCH TENDER by Avel Tsai
== END 2024-04-30 16:17 | DRG 312 ==
LOC: ER 22:23 → ERHOLD 04-29 04:55 → 2ND 04-29 06:15 → OBSVTOIN 04-30 06:10
PROVIDERS: ADMIT Family Medicine; ATTEND Internal Medicine
PROC: 02HV33Z Insertion of Infusion Device into Superior Vena Cava, Percutaneous Approach (ICD-10-PCS; principal; 2024-04-30)
DX: I95.2 Hypotension due to drugs (principal); F03.911 Unspecified dementia, unspecified severity, with agitation; N17.9 Acute kidney failure, unspecified; E03.9 Hypothyroidism, unspecified; E11.9 Type 2 diabetes mellitus without complications; I10 Essential (primary) hypertension; I48.91 Unspecified atrial fibrillation; K21.9 Gastro-esophageal reflux disease without esophagitis; Z90.13 Acquired absence of bilateral breasts and nipples; Z79.84 Long term (current) use of oral hypoglycemic drugs; Z79.899 Other long term (current) drug therapy; Z79.890 Hormone replacement therapy; Z88.0 Allergy status to penicillin; Z88.5 Allergy status to narcotic agent; Z88.8 Allergy status to other drugs, medicaments and biological substances; I49.3 Ventricular premature depolarization; T43.595A Adverse effect of other antipsychotics and neuroleptics, initial encounter; S70.02XA Contusion of left hip, initial encounter; R29.6 Repeated falls; Z91.81 History of falling; E87.6 Hypokalemia; G40.909 Epilepsy, unspecified, not intractable, without status epilepticus; D64.9 Anemia, unspecified; W06.XXXA Fall from bed, initial encounter; Y92.122 Bedroom in nursing home as the place of occurrence of the external cause; Y99.9 Unspecified external cause status; Y93.9 Activity, unspecified
CPT/HCPCS: 36415; 70450; 71045; 71250; 72125; 72170; 74176; 80053; 81001; 83880; 84439; 84443; 84484; 85025; 85610; 87077; 87086; 87088; 87186; 93005; 94760; 96361; 96365; 96366; 96372; 96375; 97161; 97530; 99285; J1720; J2270; J2405; J3486; J7030; J7040; P9047

== ENCOUNTER 2024-05-31 01:59 | Inpatient (IN) | payer OTHER ==
[2024-05-31 02:47] LABS: Absolute Lymphocytes (CBC) 1.2 K/uL (0.7-4.9); Absolute Monocytes 1.2 K/uL (0.1-1.3); Absolute Neutrophil 9.1 K/uL (1.8-8.0); Basophils % 0.1 % (0-1.3); Hematocrit 33.6 % (36.0-45.0); Hemoglobin 11.3 g/dL (12.0-15.0); Lymphocytes % 10.2 % (15.3-44.8); MCH 32.9 pg (27.0-35.0); MCHC 33.8 g/dL (32.0-36.0); MCV 97.4 fL (80-100); MPV 8.4 fL (7.6-11.3); Monocytes % 10.3 % (3.3-12.3); Neutrophils % 79.4 % (41.7-73.7); Platelets 187 thou/uL (152-406); RBC Red Blood Cell Count 3.45 M/uL (3.86-4.86); Red Cell Distribution Width 17.5 % (12.1-15.2)
[2024-05-31 02:51] LABS: PTT, Activated Partial Thromb 28.6 SECONDS (24.3-36.9); Protime INR 1.54
[2024-05-31 03:13] LABS: Albumin/Globulin Ratio 0.7 (1.1-1.8); Anion Gap 11.9 mEq/L (5.0-15.0); Bilirubin Total 1.7 mg/dL (0.2-1.0); Globulin 4.4 g/dL (2.3-3.5); Potassium 3.9 mEq/L (3.5-5.1); Protein, Total 7.4 g/dL (6.4-8.2)
[2024-05-31] MEDS ORDERED: CEFTRIAXONE 1000 MG/VIAL ONE (03:14)
--- NOTE | 2024-05-31 03:17 | ER ---
Nurse's Notes [facility] Name: Nikole Mejia Age: 83 yrs Sex: Female : 1940 Arrival Date: 05/31/2024 Time: 01:59 Bed 18 Private MD: Diagnosis: Heart failure, unspecified Presentation: 05/31 02:02 Chief complaint: EMS states: EMS STATES THE [facility] STAFF INFORMED THEM SHE WAS jj7 HAVING RESPIRATORY DISTRESS SINCE YESTERDAY. Coronavirus screen: cough unrelated to allergies, shortness of breath. Ebola Screen: No symptoms or risks identified at this time. Initial Sepsis Screen: Does the patient meet any 2 criteria? RR > 20 per min. Yes Does the patient have a suspected source of infection? No. Patient's initial sepsis screen is negative. Risk Assessment: Do you want to hurt yourself or someone else? Patient reports no desire to harm self or others. Onset of symptoms was May 30, 2024. 02:02 Method Of Arrival: EMS: [facility] 02:02 Acuity: YECENIA 3 j7 02:02 Care prior to arrival: BiPAP. jj7 Triage Assessment: 02:15 General: Appears distressed, uncomfortable, unkempt, Behavior is restless. Pain: Denies jj7 pain. Respiratory: Airway is compromised Respiratory effort is labored, Respiratory pattern is tachypnea Patient placed on BiPAP: Inspiratory Pressure: 16 Expiratory (EPAP) Pressure: 8 FiO2%: 50 Respiratory Rate: 18 Breath sounds with rales bilaterally. in left posterior upper lobe, right posterior upper lobe, left posterior lower lobe, right posterior middle lobe and right posterior lower lobe Onset: The symptoms/episode began/occurred yesterday, the patient has moderate shortness of breath. Historical: - Allergies: 02:15 ACETAMINOPHEN; jj7 02:15 Codeine; jj7 02:15 PENICILLINS; jj7 - PMHx: 02:15 Atrial fibrillation; cognitive communication deficit; diabetes mellitus; DYSPHAGIA; jj7 ENCEPHALOPATHY; epilepsy; GERD; Hypertensive disorder; Hypothyroidism; - Immunization history:: Adult Immunizations unknown. - Infectious Disease History:: Denies. - Social history:: Smoking status: unknown Patient/guardian denies using alcohol, street drugs, IV drugs. Screenin:15 Abuse screen: Denies threats or abuse. Nutritional screening: No deficits noted. jj7 Tuberculosis screening: No symptoms or risk factors identified. 06:12 [facility] ED Fall Risk Assessment (Adult) History of falling in the last 3 months, jj7 including since admission No falls in past 3 months (0 pts) Confusion or Disorientation No (0 pts) Intoxicated or Sedated No (0 pts) Impaired Gait Yes (1 pt) Mobility Assist Device Used No (0 pt) Altered Elimination Score/Fall Risk Level 0 - 2 = Low Risk Oriented to surroundings, Maintained a safe environment, Educated pt \T\ family on fall prevention, incl call for assistance when getting out of bed, Assessed \T\ reinforced patient's understanding of fall precautions. Assessment: 02:15 Reassessment: SEE TRIAGE ASSESSMENT. Cardiovascular: Rhythm is atrial fibrillation With jj7 PVC's. Respiratory: Respiratory effort is labored, with retractions. 04:00 Reassessment: SLEEPING Patient states symptoms have improved. jj7 Vital Signs: 02:02 BP 183 / 122; Pulse 109; Resp 25; Temp 97.7(A); Pulse Ox 100% on Non-rebreather mask; jj7 Weight 82.55 kg; 03:30 BP 153 / 112; Pulse 103; Resp 22; Pulse Ox 100% on BiPAP; jj7 04:21 BP 150 / 96; Pulse 86; Resp 19; Pulse Ox 100% on BiPAP; jj7 05:30 BP 164 / 106; Pulse 80; Resp 19; Temp 97.9; Pulse Ox 100% on BiPAP; jj7 ED Course: 02:01 Patient arrived in ED. vc1 02:03 James Medrano MD is Attending Physician. ec2 02:08 Lawrence Jackson RN is Primary Nurse. jj7 02:15 Triage completed. jj7 02:15 Arm band placed on right wrist. Patient placed in an exam room, on a stretcher, on jj7 oxygen, on library monitor, on pulse oximetry. 02:15 Patient has correct armband on for positive identification. Bed in low position. Call jj7 light in reach. Side rails up X2. Client placed on continuous cardiac and pulse oximetry monitoring. NIBP monitoring applied. cardiac monitor on. Warm blanket given. 02:15 Inserted saline lock: 20 gauge in left antecubital area, using aseptic technique. Blood j7 collected. Flushed with 10 mL NS. 02:23 BIPAP Sent. jj7 02:29 First set of blood cultures drawn ON RIGHT Second set of blood cultures drawn ON LEFT. jj7 02:33 Blood Culture Adult (2) Sent. vk 02:33 CBC with Diff Sent. vk 02:33 CMP Sent. vk 02:33 Lactate w/ 2H reflex if indic. Sent. vk 02:33 Protime (+inr) Sent. vk 02:34 Ptt, Activated Sent. vk 02:34 Initial lab(s) drawn, by me, sent to lab. vk 02:35 EKG done, by ED staff. vk 02:53 Chest Single View XRAY In Process Unspecified. EDMS 03:17 Edson Mccauley MD is Hospitalizing Provider. ec2 03:42 Lights dimmed. Warm blanket given. Head of bed elevated. Turned to right side. jj7 Repositioned patient. Cleaned of incontinence. 06:12 No provider procedures requiring assistance completed. Patient admitted, IV remains in [address] place[address] Administered Medications: 03:17 CANCELLED (Physician Discretion): rocephin1 grams IV at calculated rate once; Given ec2 slow IV push per pharmacy instructions 03:40 Drug: Furosemide IVP 40 mg IVP once; give over 2 minutes Route: IVP; Site: left [facility] antecubital; 04:22 Follow up: Response: Marked relief of symptoms jj7 Medication: 02:15 VIS not applicable for this client. jj7 Point of Care Testing: Blood Glucose: 02:39 Blood Glucose: 134 mg/dL; jj7 Ranges: Outcome: 03:17 Decision to Hospitalize by Provider. ec2 06:00 Admitted to Med/surg accompanied by tech, via stretcher, with oxygen, Report called to j7 SBAR FAXED TO 4TH FLOOR \T\[id number] 06:00 Condition: improved 06:00 Patient left the ED. jj7 Signatures: [facility] Katiana Todd, RN RN vc1 Lawrence Jackson RN RN jj7 James Medrano MD MD ec2 Heidy Artis Corrections: (The following items were deleted from the chart) 06:13 06:13 Patient left the ED. j7 jj7
--- NOTE | 2024-05-31 03:17 | EDPHYS ---
Physician Documentation [facility] Name: Nikole Mejia Age: 83 yrs Sex: Female : 1940 Arrival Date: 05/31/2024 Time: 01:59 Bed 18 Private MD: ED Physician James Medrano HPI: 05/31 02:06 This 83 yrs old Female presents to ER via Unassigned with complaints of ec2 Breathing Difficulty. 02:06 Patient arrives today for evaluation of shortness of breath. Onset of 2 days. Patient ec2 with shortness of breath, history of dementia and minimal history from patient. EMS reports that they had noted her to have work of breathing and subsequently CPAP applied.. Historical: - Allergies: 02:15 ACETAMINOPHEN; jj7 02:15 Codeine; jj7 02:15 PENICILLINS; jj7 - PMHx: 02:15 Atrial fibrillation; cognitive communication deficit; diabetes mellitus; DYSPHAGIA; jj7 ENCEPHALOPATHY; epilepsy; GERD; Hypertensive disorder; Hypothyroidism; - Immunization history:: Adult Immunizations unknown. - Infectious Disease History:: Denies. - Social history:: Smoking status: unknown Patient/guardian denies using alcohol, street drugs, IV drugs. ROS: 02:06 Constitutional: as per hpi ec2 Exam: 02:06 Constitutional: GEN: NAD Head: atraumatic Eyes: EOMI Ears: External ears are ec2 normal. CV: regular rate LUNGS: , scattered Rales throughout all lung blanco. ABD: non-distended SKIN: no evidence of rashes MSK: no evidence of trauma Vital Signs: 02:02 BP 183 / 122; Pulse 109; Resp 25; Temp 97.7(A); Pulse Ox 100% on Non-rebreather mask; jj7 Weight 82.55 kg; 03:30 BP 153 / 112; Pulse 103; Resp 22; Pulse Ox 100% on BiPAP; jj7 04:21 BP 150 / 96; Pulse 86; Resp 19; Pulse Ox 100% on BiPAP; jj7 05:30 BP 164 / 106; Pulse 80; Resp 19; Temp 97.9; Pulse Ox 100% on BiPAP; jj7 MDM: 02:04 Medical Screening Exam initiated ec2 02:06 Data reviewed: vital signs, nurses notes. ED course: Patient arrives today for ec2 evaluation of shortness of breath. Examination is remarkable individuals with rales throughout all lung blanco. Will obtain lab work, EKG, chest x-ray, apply BiPAP given the patient's work of breathing. Suspect volume overload.. 02:26 ED course: EKG independently reviewed and interpreted by me, shows atrial fibrillation, ec2 rate of 104, PVCs noted, intervals are nonactionable.. 03:04 ED course: CBC reassuring. Lactic acid within normal ranges.. ec2 03:16 ED course: Labs remarkable for elevated BNP. Suspect CHF exacerbation, will admit for ec2 CHF exacerbation requiring BiPAP. Discussed case with the hospitalist agrees accept the patient for admission.. 12 02:04 Order name: Blood Culture Adult (2) ec2 05/31 02:04 Order name: CBC with Diff; Complete Time: 03:03 ec2 08 02:04 Order name: CMP; Complete Time: 03:16 ec2 08 02:04 Order name: Lactate w/ 2H reflex if indic.; Complete Time: 03:03 ec2 08 02:04 Order name: Protime (+inr); Complete Time: 03:03 ec2 08 02:04 Order name: Ptt, Activated; Complete Time: 03:03 ec2 08 02:04 Order name: BNP; Complete Time: 03:16 ec2 08 02:51 Order name: Glucose, Ancillary Testing; Complete Time: 03:03 EDMS 05/31 04:47 Order name: Urinalysis w/ reflexes EDMS 05/31 04:47 Order name: CBC with Automated Diff EDMS 05/31 04:47 Order name: CBC with Automated Diff EDMS 05/31 04:47 Order name: Comprehensive Metabolic Panel EDMS 05/31 04:47 Order name: Comprehensive Metabolic Panel EDMS 05/31 04:47 Order name: Magnesium EDMS 05/31 04:47 Order name: Magnesium EDMS 05/31 04:47 Order name: Phosphorus EDMS 05/31 04:47 Order name: Phosphorus EDMS 05/31 04:47 Order name: Troponin High Sensitivity EDMS 05/31 04:47 Order name: Troponin High Sensitivity EDMS 05/31 04:47 Order name: Troponin High Sensitivity EDMS 05/31 04:47 Order name: Troponin High Sensitivity EDMS 05/31 02:04 Order name: Chest Single View XRAY ec2 05/31 02:06 Order name: BIPAP ec2 05/31 04:49 Order name: Echo with Doppler EDMS 05/31 02:04 Order name: Accucheck; Complete Time: 02:37 ec2 05/31 02:04 Order name: Cardiac monitoring; Complete Time: 02:08 ec2 05/31 02:04 Order name: EKG - Nurse/Tech; Complete Time: 02:23 ec2 05/31 02:04 Order name: IV Saline Lock - Large Bore; Complete Time: 02:23 ec2 05/31 02:04 Order name: Labs collected and sent; Complete Time: 02:33 ec2 05/31 02:04 Order name: O2 Per Protocol; Complete Time: 02:09 ec2 05/31 02:04 Order name: O2 Sat Monitoring; Complete Time: 02:09 ec2 05/31 02:04 Order name: Vital Signs; Complete Time: 02:23 ec2 Administered Medications: 03:17 CANCELLED (Physician Discretion): rocephin1 grams IV at calculated rate once; Given ec2 slow IV push per pharmacy instructions 03:40 Drug: Furosemide IVP 40 mg IVP once; give over 2 minutes Route: IVP; Site: left [facility] antecubital; 04:22 Follow up: Response: Marked relief of symptoms [facility] Point of Care Testing: Blood Glucose: 02:39 Blood Glucose: 134 mg/dL; j7 Ranges: Critical Glucose Levels:Adult <50 mg/dl or >400 mg/dl <40 mg/dl or >180 mg/dl Disposition: 03:16 Critical Care:. ec2 Disposition Summary: 05/31/24 03:17 Hospitalization Ordered Notes: Hospitalization Status: Inpatient Admission ec2 Provider: Edson Mccauley ec2 Location: Telemetry/[facility] (Inpatient) ec2 Condition: Stable ec2 Problem: an acute exacerbation ec2 Symptoms: have improved ec2 Bed/Room Type: Standard ec2 Room Assignment: 406(05/31/24 04:56) rv1 Diagnosis - Heart failure, unspecified ec2 Forms: - Medication Reconciliation Form ec2 - SBAR form ec2 - Leadership Thank You Letter ec2 Critical care time excluding procedures: 03:16 Critical care time: Bedside Care: 30 minutes, Consultation: 5 minutes. Total time: 35 ec2 minutes Signatures: Dispatcher [employer] EDMS Lawrence Jackson RN RN jj7 Nani Philip rv1 James Medrano MD MD ec2 Corrections: (The following items were deleted from the chart) 02:05 02:05 BLOOD CULTURE*+BA.LAB.BRZ ordered. EDMS EDMS 02:05 02:05 CBC+H.LAB.BRZ ordered. EDMS EDMS 02:05 02:05 COMPREHENSIVE METABOLIC PANEL+C.LAB.BRZ ordered. EDMS EDMS 02:05 02:05 LACTATE+C.LAB.BRZ ordered. EDMS EDMS 02:05 02:05 PROTIME (+INR)+COAG.LAB.BRZ ordered. EDMS EDMS 02:05 02:05 PTT, ACTIVATED+COAG.LAB.BRZ ordered. EDMS EDMS 02:05 02:05 PROBNP+C.LAB.BRZ ordered. EDMS EDMS 02:05 02:05 Chest Single View+RAD.RAD.BRZ ordered. EDMS EDMS 03:17 03:04 Rocephin IV 1 grams IV at calculated rate once; Given slow IV push per pharmacy ec2 instructions ordered. ec2 04:56 03:17 ec2 rv1
[2024-05-31] MEDS ORDERED: FUROSEMIDE 40 MG/4 ML VIAL ONE (03:23)
--- NOTE | 2024-05-31 04:34 | P.HP ---
Certification for Inpatient Patient admitted to: Inpatient With expected LOS: >2 Midnights Practitioner: I am a practitioner with admitting privileges, knowledge of patient current condition, hospital course, and medical plan of care. Services: Services provided to patient in accordance with Admission requirements found in Title 42 Section 412.3 of the Code of Federal Regulations Patient History Date of Service: 05/31/24 Reason for admission: SOB History of Present Illness: 83 yrs old Female with past medical history of diabetes, hypertension, hypothyroidism, GERD, epilepsy, atrial fibrillation history of encephalopathy, dementia, cognitive communication deficit presents with shortness of breath. She started having short of breath for the last 2 days and has been progressively getting worse. Patient could not offer any much history hence most of the history is obtained from the chart review and also talking to the ER physician. Patient was found to be very short of breath and had to be placed on BiPAP. No fever or chills. Denies any history of chest pain. Patient was assessed in the ER hide was admitted for CHF exacerbation and for further management Allergies Unable to Assess Allergy (Unverified 04/29/24 07:17) Home Medications: Amiodarone HCl [Cordarone*] 200 mg PO DAILY 04/29/24 Levothyroxine [Synthroid*] 75 mcg PO DAILY 04/29/24 levETIRAcetam [Keppra] 5 ml PO BID 04/29/24 Metoprolol Tartrate 50 mg PO BID #30 04/30/24 - Past Medical/Surgical History Diabetic: No Past Medical History: Reviewed- Non-Contributory -: epilepsy; Hypothyroidism; Diabetes mellitus; Hypertensive disorder -: Advanced dementia -: GERD Past Surgical History: Reviewed- Non-Contributory - Family History Family History: Reviewed- Non-Contributory - Social History Smoking Status: Never smoker Alcohol use: No CD- Drugs: No Caffeine use: No Review of Systems is unable to be obtained Physical Examination - Vital Signs Temperature: 97.2 F Blood Pressure: 138/74 Pulse: 126 Respirations: 18 Pulse Ox (%): 98 - Physical Exam General: Alert, Oriented x1, Moderate distress HEENT: Atraumatic, Normocephalic Neck: Supple Respiratory: Diminished, Crackles/rales, Expiratory wheezes Cardiovascular: Regular rate/rhythm, Normal S1 S2 Capillary refill: <2 Seconds Gastrointestinal: Soft and benign, W/out hepatosplenomegaly Musculoskeletal: No clubbing, No swelling Integumentary: No rashes, No breakdown Neurological: Other (drowsy , arousable , moves all limbs ) Lymphatics: No axilla or inguinal lymphadenopathy - Studies Laboratory Data (last 24 hrs) 05/31/24 05/31/24 05/31/24 02:26 02:26 02:26 WBC 11.40 H Hgb 11.3 L Hct 33.6 L Plt Count 187 PT 17.0 H INR 1.54 APTT 28.6 Sodium 138 Potassium 3.9 BUN 23 H Creatinine 1.01 Glucose 137 H Total Bilirubin 1.7 H AST 23 ALT 19 Alkaline Phosphatase 95 Assessment and Plan - Plan Acute on chronic CHF possibly systolic/diastolic Monitor closely on telemetry Started on aggressive diuresis X-ray findings noted Continue home medications Titrate as needed Will obtain an echocardiogram Cardiology consult Acute hypoxic respiratory failure Had to be placed on BiPAP Oxygen supplementation Will try to wean down oxygen requirement Hypertension Antihypertensives titrated Continue home medications and titrate as needed Atrial fibrillation with RVR Tachycardia noted Continue amiodarone Hyperlipidemia Continue statin Dementia Continue home medications and supportive therapy Seizure disorder Continue Keppra GI/DVT prophylaxis Advanced directive full code Discharge Plan: Home Plan to discharge in: 48 Hours - Advance Directives Does patient have a Living Will: No Does patient have a Durable POA for Healthcare: No - Code Status/Comfort Care Code Status: Full Code Time Spent Managing Pts Care (In Minutes): 48
--- NOTE | 2024-05-31 04:40 | RAD REPORT ---
XR CHEST 1 VIEW CLINICAL INDICATION: Dyspnea COMPARISON: None FINDINGS: SUPPORT DEVICES: None LUNGS/PLEURAL SPACES: Central pulmonary vascular congestion. No focal consolidation. No pleural effus ion. No pneumothorax. HEART/MEDIASTINUM: Heart is enlarged. BONES/UPPER ABDOMEN/SOFT TISSUES: No acute findings. Several surgical clips over right chest. IMPRESSION: Central pulmonary vascular congestion. Electronically signed by: Rochelle García MD 05/31/2024 04:25 AM [facility] Due to temporary technical issues with the PACS/App Press reporting system, reports are being mony d by the in-house radiologist without review as a courtesy to ensure prompt reporting the interpreting radiologist is fully responsible for the content of the report. Transcribed Date/Time: 05/31/2024 4:40 AM
[2024-05-31] MEDS ORDERED: ACETAMINOPHEN 325 MG TABLET PO PRN (04:42)
[2024-05-31] MEDS ORDERED: ALBUTEROL 2.5 MG/3 ML NEB SOL NEB PRN (04:42)
[2024-05-31] MEDS: FUROSEMIDE 40 MG/4 ML VIAL IV SCH (04:46)
[2024-05-31 07:18] LABS: Specific Gravity 1.008 (1.005-1.030); Sqamous Epithelial <5 /HPF (None Seen); Urine Bacteria <20 /HPF (<20); Urine Bilirubin NEGATIVE (Negative); Urine Blood Negative (Negative); Urine Clarity Turbid (Clear); Urine Color Light-Yellow (Yellow); Urine Culture Reflex Order NOT NEEDED; Urine Glucose NEGATIVE (Negative); Urine Ketones NEGATIVE (Negative); Urine Microscopic Reflex YN ORDER UMIC; Urine Mucus Slight /HPF (None Seen); Urine Nitrite 1+ (Negative); Urine Protein NEGATIVE (Negative); Urine RBC <5 /HPF (None Seen); Urine Urobilinogen Normal (Normal); Urine WBC <5 /HPF (<5)
--- NOTE | 2024-05-31 08:23 | P.PN ---
Date of Service: 05/31/24 Subjective: not feeling too great, dealing with some worsening shortness of breath for last few days more awake / alert. Responding to some questions feels breathing is slightly easier this morning tolerated BiPAP overnight afebrile ROS: 10 point ROS as noted above, otherwise negative Physical Exam: GEN: Alert, awake, fatigued CV: Regular rate and rhythm, 1+ bilateral lower extremity edema Pulm: Nonlabored respirations on 4L NC / BiPAP at night, diminished bilaterally, bilateral crackles ABD: soft, nontender, nondistended Neuro: Normal speech, normal affect Problem List: Acute hypoxic respiratory failure secondary to acute on chronic CHF exacerbation A-fib with RVR NIDDM2 Hypertension Hyperlipidemia Hypothyroidism GERD Advanced Dementia Hx Seizure disorder Acute hypoxic respiratory failure secondary to acute on chronic CHF exacerbation on admission, presents with worsening shortness of breath for ~2 days Had to be placed on BiPAP. Continue BiPAP as needed Possibly related to recent medication changes. During last hospitalization, was advised to stop eliquis, lasix, metformin and losartan ~1 month ago for ?hypotension, dehydration, frequent falls Trend troponins, Monitor on telemetry Continue IV lasix 40 mg q8h Cardiology consulted NPO for now - pt with weak voice, BIPAP Echo ordered to eval EF / stenosis check EKG A-fib with RVR Not on anticoagulation. eliquis was reportedly discontinued during last hospitalization ~1 month ago resume home metoprolol, amiodarone NIDDM2 accu-cheks, SSI Patient advised to stop metformin during last hospitalization Hypertension Hyperlipidemia Hypothyroidism GERD Advanced Dementia Hx Seizure disorder confirm home meds, restart as appropriate resume home keppra, synthroid VTE: Lovenox Code: Full Dispo: back to [place] - [facility] resident Pending cardiac recs Time Spent Managing Pts Care (In Minutes): 55
[2024-05-31] MEDS: ENOXAPARIN 40 MG/0.4 ML SQ SCH (10:36)
[2024-05-31] MEDS: LEVOTHYROXINE SOD 0.075 MG TAB PO SCH (10:37)
[2024-05-31] MEDS: METOPROLOL TAR 50 MG TAB PO SCH (10:37)
[2024-05-31] MEDS: AMIODARONE HCL 200 MG TAB PO SCH (10:38)
[2024-05-31] MEDS: levETIRAcetam 500 MG/5 ML OSYR PO SCH (10:39)
[2024-05-31] MEDS: HYDRALAZINE HCL 20 MG/ML VIAL IV PRN (17:50)
[2024-06-01] MEDS ORDERED: SODIUM CHLORIDE 0.9% 10ML INJ IV PRN (06:23)
[2024-06-01] MEDS: ONDANSETRON 4 MG/2 ML VIAL IV PRN (06:30)
[2024-06-01] MEDS: MORPHINE 2 MG/ML SYR IV PRN (06:30)
[2024-06-01 06:41] VITALS: BMI 28.5
[2024-06-01 07:05] LABS: Albumin 2.8 g/dL (3.4-5.0); Albumin/Globulin Ratio 0.7 (1.1-1.8); Bilirubin Total 1.1 mg/dL (0.2-1.0); Globulin 4.2 g/dL (2.3-3.5); Magnesium 1.8 mg/dL (1.6-2.4); Phosphorus 2.9 mg/dL (2.5-4.9)
[2024-06-01 07:14] LABS: Absolute Basophils 0.1 K/uL (0-0.5); Absolute Eosinophils 0.1 K/uL (0-0.5); Absolute Lymphocytes (CBC) 1.2 K/uL (0.7-4.9); Absolute Monocytes 1.5 K/uL (0.1-1.3); Absolute Neutrophil 6.9 K/uL (1.8-8.0); Basophils % 0.7 % (0-1.3); Eosinophils % 1.5 % (0-4.4); Hemoglobin 10.4 g/dL (12.0-15.0); Lymphocytes % 12.6 % (15.3-44.8); MCH 31.8 pg (27.0-35.0); MCHC 32.5 g/dL (32.0-36.0); MCV 97.8 fL (80-100); MPV 8.5 fL (7.6-11.3); Monocytes % 15.7 % (3.3-12.3); Neutrophils % 69.5 % (41.7-73.7); Platelets 170 thou/uL (152-406); RBC Red Blood Cell Count 3.28 M/uL (3.86-4.86); Red Cell Distribution Width 17.3 % (12.1-15.2)
--- NOTE | 2024-06-01 08:25 | P.PN ---
Date of Service: 06/01/24 Subjective: breathing feels okay, feels some slight improvement dealing with new headache restless overnight in a-fib; rate controlled in 80-90s afebrile ROS: 10 point ROS as noted above, otherwise negative Physical Exam: GEN: Alert, awake, fatigued CV: Irregular Rhythm; rate controlled HR 80-90s. 1+ bilateral lower extremity edema Pulm: Nonlabored respirations on 3L NC / BiPAP at night, diminished bilaterally, bilateral crackles ABD: soft, nontender, nondistended Neuro: Normal speech, normal affect Problem List: Acute hypoxic respiratory failure secondary to acute on chronic CHF exacerbation A-fib with RVR NIDDM2 Hypertension Hyperlipidemia Hypothyroidism GERD Advanced Dementia Hx Seizure disorder Hx diverticulitis Acute hypoxic respiratory failure secondary to acute on chronic CHF exacerbation on admission, presents with worsening shortness of breath for ~2 days Had to be placed on BiPAP. BiPAP as needed. Possibly related to recent medication changes. During last hospitalization, was advised to stop eliquis, lasix, metformin and losartan ~1 month ago for ?hypotension, dehydration, frequent falls Trend troponins, Monitor on telemetry Continue IV lasix 40 mg q8h Cardiology consulted Echo ordered to eval EF / stenosis BNP improving. Oxygen requirements improving. Wean oxygen as tolerated. Nursing staff concerned for some difficulty swallowing, risk of aspiration overnight. She was able to drink few sips of water yesterday during the day and ate few bites of applesauce without issues speech consulted to eval swallowing NPO for now; okay to give sips of water with meds 06/01 updated family over the phone. They state patient had recent prolonged hospitalized at [facility] (Feb-Mar 2024) requiring intubation, sedation unable to view OSH records. Advised family to bring in records if possible. Please obtain OSH records. A-fib with RVR Not on anticoagulation. eliquis was reportedly discontinued during last hospitalization ~1 month ago resume home metoprolol, amiodarone Currently in a-fib per tele; Rate controlled 80-90s. NIDDM2 accu-cheks, SSI Patient advised to stop metformin during last hospitalization Hypertension Hyperlipidemia Hypothyroidism GERD Advanced Dementia Hx Seizure disorder confirm home meds, restart as appropriate resume home keppra, synthroid, protonix, duloxetine VTE: Lovenox Code: Full Dispo: ~2-3 days; back to [place] - [facility] resident Pending cardiac recs Time Spent Managing Pts Care (In Minutes): 55
[2024-06-01] MEDS: PANTOPRAZOLE 40 MG INJ IVP SCH (08:42)
[2024-06-01] MEDS: DULOXETINE 30 MG CAP PO SCH (08:43)
[2024-06-01] MEDS: KCL 20 MEQ/100 mL IVPB 20 MEQ/100 ML BAG IV SCH (08:47)
[2024-06-01] MEDS: MAGNESIUM SULFATE 1 gm IVPB 1 GM/100 ML BAG IV ONE (08:47)
--- NOTE | 2024-06-01 16:53 | P.CNS ---
Date of Consult: 06/01/24 Chief Complaint: SOB History of Present Illness: Patient with PMH of HTN, Presented with worsening SOB, BLE, denies chest pain, no syncope. Allergies acetaminophen Allergy (Verified 05/31/24 05:38) Itching/Hives/Rash codeine Allergy (Verified 05/31/24 05:38) Itching/Hives/Rash Penicillins Allergy (Verified 05/31/24 05:38) Anaphylaxis Home medications list reviewed: Yes Home Medications: Amiodarone HCl [Cordarone*] 200 mg PO DAILY 04/29/24 Levothyroxine [Synthroid*] 75 mcg PO DAILY 04/29/24 levETIRAcetam [Keppra] 5 ml PO BID 04/29/24 Metoprolol Tartrate 50 mg PO BID #30 04/30/24 Duloxetine HCl 60 mg PO DAILY 05/31/24 Metformin ER [Glucophage ER] 500 mg PO DAILY 05/31/24 Omeprazole 20 mg PO DAILY 05/31/24 - Past Medical/Surgical History Diabetic: No -: DM -: Advanced dementia -: GERD -: epilepsy -: Afib -: Dysphagia -: Hypothyoidism -: encephalopathy - Social History Smoking Status: Unknown if ever smoked Alcohol use: No CD- Drugs: No Caffeine use: No Place of Residence: [facility] Review of Systems 10-point ROS is otherwise unremarkable Physical Examination Temp Pulse Resp BP Pulse Ox 98.8 F 88 20 129/85 98 06/01/24 11:50 06/01/24 11:50 06/01/24 11:50 06/01/24 11:50 06/01/24 11:50 General: Alert, In no apparent distress HEENT: Atraumatic, PERRLA, Mucous membr. moist/pink, EOMI, Sclerae nonicteric Neck: Supple, 2+ carotid pulse no bruit, No LAD, Without JVD or thyroid abnormality Respiratory: Clear to auscultation bilaterally, Normal air movement Cardiovascular: Regular rate/rhythm, Normal S1 S2 Gastrointestinal: Normal bowel sounds, No tenderness Musculoskeletal: No tenderness Integumentary: No rashes Neurological: Normal gait, Normal speech, Normal tone, Normal affect Lymphatics: No axilla or inguinal lymphadenopathy - Problems (1) SOB (shortness of breath) Current Visit: Yes Status: Acute Plan: continue Lasix 40 mg IV q8 hours continue lopressor continue to monitor input and output and electrolytes. (2) Atrial fibrillation Current Visit: Yes Status: Acute Plan: Patient is rate controlled continue amiodarone and lopressor.
[2024-06-02 07:29] LABS: Anion Gap 4.6 mEq/L (5.0-15.0); Magnesium 1.9 mg/dL (1.6-2.4)
[2024-06-02 07:34] LABS: Potassium 2.6 mEq/L (3.5-5.1)
[2024-06-02] MEDS: KCL 20 MEQ/100 mL IVPB 20 MEQ/100 ML BAG IV SCH (08:36)
--- NOTE | 2024-06-02 09:03 | ECHO ---
HEIGHT: 5 ft 5 in WEIGHT: 171 lb 12.8 oz DATE OF STUDY: 06/01/[address]: Roldan Mccauley DO 2-DIMENSIONAL: YES M.MODE: YES DOPPLER: YES COLOR FLOW: YES TDS: NO PORTABLE: YES DEFINITY: NO BUBBLE STUDY: NO DIAGNOSIS: CONGESTIVE HEART FAILURE CARDIAC HISTORY: CATHERIZATION: SURGERY: PROSTHETIC VALVE: PACEMAKER: MEASUREMENTS (cm) DIASTOLIC (NORMALS) SYSTOLIC (NORMALS) IVSd 1.2 (0.6-1.2) LA Diam 4.0 (1.9-4.0) LVEF 55-60% LVIDd 4.0 (3.5-5.7) LVIDs 2.7 (2.0-3.5) %FS 33% LVPWd 1.0 (0.6-1.2) Ao Diam 2.7 (2.0-3.7) 2 DIMENSIONAL ASSESSMENT: RIGHT ATRIUM: NORMAL LEFT ATRIUM: SEVERELY DILATED RIGHT VENTRICLE: NORMAL LEFT VENTRICLE: NORMAL TRICUSPID VALVE: MILD TRICUSPID REGURGITATION MITRAL VALVE: MILD MITRAL REGURGITATION PULMONIC VALVE: NORMAL AORTIC VALVE: TRACE AORTIC REGURGITATION PERICARDIAL EFFUSION: NONE AORTIC ROOT: NORMAL LEFT VENTRICULAR WALL MOTION: NORMAL. DOPPLER/COLOR FLOW: DIASTOLIC DYSFUNCTION. COMMENTS: 1. NORMAL LEFT VENTRICULAR SYSTOLIC FUNCTION. LEFT VENTRICULAR EJECTION FRACTION 55-60%. NORMAL WALL MOTION. 2. DIASTOLIC DYSFUNCTION. 3. MODERATE PULMONARY HYPERTENSION. RIGHT VENTRICULAR SYSTOLIC PRESSURE 40-45 mmHg. 4. ELEVATED FILLING PRESSURES. RIGHT ATRIAL PRESSURE 15-20 mmHg. TECHNOLOGIST: VELVET HOFFMAN [facility]
--- NOTE | 2024-06-02 12:09 | P.PN ---
Subjective Date of Service: 06/02/24 Chief Complaint: SOB Subjective: No new changes, No C/O voiced, Tolerating diet, Ambulating, Improving Review of Systems 10-point ROS is otherwise unremarkable Physical Examination - Vital Signs Temperature: 98.4 F Blood Pressure: 164/99 Pulse: 75 Respirations: 17 Pulse Ox (%): 93 - Physical Exam General: Alert, In no apparent distress HEENT: Atraumatic, PERRLA, EOMI Neck: Supple, JVD not distended Respiratory: Clear to auscultation bilaterally, Normal air movement Cardiovascular: Regular rate/rhythm, Normal S1 S2 Gastrointestinal: Normal bowel sounds, No tenderness Musculoskeletal: No tenderness Integumentary: No rashes Neurological: Normal speech, Normal tone, Normal affect Lymphatics: No axilla or inguinal lymphadenopathy - Studies Medications List Reviewed: Yes Assessment And Plan - Current Problems (Diagnosis) (1) SOB (shortness of breath) Current Visit: Yes Status: Acute Plan: lower to Lasix 40 mg IV q12 hours continue lopressor add Losartan 25 mg daily add Aldactone 25 mg daily continue to monitor input and output and electrolytes. (2) Atrial fibrillation Current Visit: Yes Status: Acute Plan: Patient is rate controlled continue amiodarone and lopressor.
[2024-06-02] MEDS: NA CHLORIDE 0.9% 500 ML ONE (13:44)
--- NOTE | 2024-06-02 16:09 | P.PN ---
Subjective Date of Service: 06/02/24 Chief Complaint: SOB Patient appears to be in a good mood, she is off BiPAP and tolerating 3 L oxygen by nasal cannula. No issues overnight. Physical Examination - Vital Signs Temperature: 98.4 F Blood Pressure: 164/99 Pulse: 75 Respirations: 17 Pulse Ox (%): 93 - Studies Medications List Reviewed: Yes Assessment And Plan - Plan Physical Exam: GEN: Alert, awake, NAD Neck: No elevated JVD. CV: Irregular Rhythm; normal rate. 1+ bilateral lower extremity edema Pulm: Nonlabored respirations on 3L NC / BiPAP at night, diminished bilaterally, bilateral crackles ABD: soft, nontender, nondistended Neuro: Normal speech, normal affect Problem List: Acute hypoxic respiratory failure secondary to acute on chronic CHF exacerbation A-fib with RVR NIDDM2 Hypertension Hyperlipidemia Hypothyroidism GERD Advanced Dementia Hx Seizure disorder Hx diverticulitis Acute hypoxic respiratory failure secondary to acute on chronic CHF exacerbation Initially on continuous BiPAP, now weaned to oxygen by nasal cannula. BiPAP as needed. Patient was not taking Lasix because she was advised to stop taking it on discharge from previous admission. Troponin negative. Cardiology input appreciated. Reduce IV Lasix dose to 40 mg every 12 Echo: Normal EF, moderate pulm hypertension. Wean oxygen as tolerated. Oropharyngeal dysphagia Speech therapy input appreciated. Patient mental status improved and she did okay with pured diet and nectar thickened liquids Speech therapy input appreciated. Patient started on nectar thickened liquids and pured diet. Aspiration precautions. A-fib with RVR Rate controlled. Not on anticoagulation. eliquis was reportedly discontinued during last hospitalization ~1 month ago Continue home metoprolol, amiodarone Cardiology input appreciated. NIDDM2 accu-cheks, SSI Blood glucose readings are within normal range. Hypokalemia Replace potassium IV Monitor levels. Hypertension Hyperlipidemia Hypothyroidism GERD Advanced Dementia Hx Seizure disorder Continue home medications. VTE: Lovenox Code: Full Dispo: [facility].
[2024-06-02] MEDS ORDERED: ALBUTEROL 2.5 MG/3 ML NEB SOL NEB PRN (16:55)
[2024-06-02] MEDS: LOSARTAN POTASSIUM 50 MG TABLET PO SCH (17:52)
[2024-06-02] MEDS: SPIRONOLACTONE 25 MG TABLET PO SCH (17:52)
[2024-06-02] MEDS: FUROSEMIDE 40 MG/4 ML VIAL IV SCH (21:51)
[2024-06-03] MEDS: LEVOTHYROXINE SOD 0.075 MG TAB PO SCH (06:43)
[2024-06-03 07:41] LABS: Absolute Eosinophils 0.2 K/uL (0-0.5); Absolute Lymphocytes (CBC) 1.6 K/uL (0.7-4.9); Absolute Monocytes 1.1 K/uL (0.1-1.3); Absolute Neutrophil 4.7 K/uL (1.8-8.0); Basophils % 0.6 % (0-1.3); Eosinophils % 2.5 % (0-4.4); Lymphocytes % 20.6 % (15.3-44.8); MCH 33.2 pg (27.0-35.0); MCHC 34.4 g/dL (32.0-36.0); MCV 96.3 fL (80-100); MPV 7.9 fL (7.6-11.3); Monocytes % 14.3 % (3.3-12.3); Nucleated Red Blood Cells % 0.1 % (0-0); Platelets 197 thou/uL (152-406); RBC Red Blood Cell Count 3.33 M/uL (3.86-4.86); Red Cell Distribution Width 16.9 % (12.1-15.2)
[2024-06-03] MEDS: POTASSIUM 25 MEQ EFFERV TAB PO ONE (10:19)
--- NOTE | 2024-06-03 16:05 | P.PN ---
Subjective Date of Service: 06/03/24 Chief Complaint: SOB Patient is pleasantly confused. Her oxygen saturation is 99% on 3 L oxygen by nasal cannula. No issues overnight. No reported agitation. Physical Examination - Vital Signs Temperature: 97.8 F Blood Pressure: 126/58 Pulse: 78 Respirations: 18 Pulse Ox (%): 90 - Studies Medications List Reviewed: Yes Assessment And Plan - Plan Physical Exam: GEN: Alert, awake, NAD Neck: No elevated JVD. CV: Irregular Rhythm; normal rate. 1+ bilateral lower extremity edema Pulm: Nonlabored respirations on 3L NC / BiPAP at night, diminished bilaterally, bilateral crackles ABD: soft, nontender, nondistended Neuro: Confused, normal speech, normal affect Problem List: Acute hypoxic respiratory failure secondary to acute on chronic CHF exacerbation A-fib with RVR NIDDM2 Hypertension Hyperlipidemia Hypothyroidism GERD Advanced Dementia Hx Seizure disorder Hx diverticulitis Acute hypoxic respiratory failure secondary to acute on chronic CHF exacerbation Initially on continuous BiPAP, now weaned to oxygen by nasal cannula. BiPAP as needed. Patient was not taking Lasix because she was advised to stop taking it on discharge from previous admission. Troponin negative. Cardiology input appreciated. Transition IV Lasix to p.o. Lasix today. Wean oxygen as possible. Echo: Normal EF, moderate pulm hypertension. Oropharyngeal dysphagia Speech therapy input appreciated. Patient mental status improved and she did okay with pured diet and nectar thickened liquids Continue nectar thickened liquids and pured diet. Aspiration precautions. A-fib with RVR Rate controlled. Not on anticoagulation. eliquis was reportedly discontinued during last hospitalization ~1 month ago Continue home metoprolol, amiodarone Cardiology is following. NIDDM2 accu-cheks, SSI Blood glucose readings are within normal range. Hypokalemia Replace potassium IV Monitor levels. Hypertension Hyperlipidemia Hypothyroidism GERD Advanced Dementia Hx Seizure disorder Continue home medications. VTE: Lovenox Code: Full Dispo: [facility].
[2024-06-03] MEDS: KCL 20 MEQ/100 mL IVPB 20 MEQ/100 ML BAG IV SCH (17:31)
[2024-06-03] MEDS: NA CHLORIDE 0.9% 500 ML IV ONE (17:31)
[2024-06-03] MEDS: FUROSEMIDE 40 MG TABLET PO SCH (17:31)
[2024-06-04] MEDS: KCL 20 MEQ/100 mL IVPB 20 MEQ/100 ML BAG IV SCH (00:23)
[2024-06-04] MEDS: PANTOPRAZOLE 40MG TABLET PO SCH (08:02)
[2024-06-04 08:04] LABS: Absolute Eosinophils 0.1 K/uL (0-0.5); Absolute Lymphocytes (CBC) 1.6 K/uL (0.7-4.9); Absolute Monocytes 1.2 K/uL (0.1-1.3); Absolute Neutrophil 4.4 K/uL (1.8-8.0); Basophils % 0.5 % (0-1.3); Eosinophils % 1.9 % (0-4.4); Hematocrit 31.5 % (36.0-45.0); Hemoglobin 10.8 g/dL (12.0-15.0); Lymphocytes % 21.7 % (15.3-44.8); MCH 33.1 pg (27.0-35.0); MCHC 34.1 g/dL (32.0-36.0); MCV 96.9 fL (80-100); MPV 7.7 fL (7.6-11.3); Monocytes % 16.3 % (3.3-12.3); Neutrophils % 59.6 % (41.7-73.7); Platelets 177 thou/uL (152-406); RBC Red Blood Cell Count 3.25 M/uL (3.86-4.86); Red Cell Distribution Width 16.6 % (12.1-15.2)
[2024-06-04 08:21] LABS: Anion Gap 4.8 mEq/L (5.0-15.0); Potassium 3.8 mEq/L (3.5-5.1)
[2024-06-04 10:01] VITALS: O2SAT 93
[2024-06-04] MEDS: POTASSIUM CL SA 10 MEQ TAB PO ONE (10:43)
--- NOTE | 2024-06-04 11:24 | P.PN ---
Subjective Date of Service: 06/04/24 Chief Complaint: SOB Subjective: No new changes, No C/O voiced, Tolerating diet, Ambulating, Improving Review of Systems 10-point ROS is otherwise unremarkable Physical Examination - Vital Signs Temperature: 98.3 F Blood Pressure: 166/89 Pulse: 85 Respirations: 20 Pulse Ox (%): 100 - Physical Exam General: Alert, In no apparent distress HEENT: Atraumatic, PERRLA, EOMI Neck: Supple, JVD not distended Respiratory: Clear to auscultation bilaterally, Normal air movement Cardiovascular: Regular rate/rhythm, Normal S1 S2 Gastrointestinal: Normal bowel sounds, No tenderness Musculoskeletal: No tenderness Integumentary: No rashes Neurological: Normal speech, Normal tone, Normal affect Lymphatics: No axilla or inguinal lymphadenopathy - Studies Medications List Reviewed: Yes Assessment And Plan - Current Problems (Diagnosis) (1) SOB (shortness of breath) Current Visit: Yes Status: Acute Plan: lasix 40 mg po BID continue lopressor continue Aldactone 25 mg daily continue to monitor input and output and electrolytes. (2) Atrial fibrillation Current Visit: Yes Status: Acute Plan: Patient is rate controlled continue amiodarone and lopressor.
[2024-06-04 11:42] VITALS: BP 145/96; TEMP 97.8
--- NOTE | 2024-06-04 14:35 | P.DS ---
Admission Date: 05/31/24 Discharge Date: 06/04/24 Disposition: TRANSFER TO LONGTERM Discharge Condition: FAIR Reason for Admission: SOB Brief History of Present Illness: 83 yrs old Female with past medical history of diabetes, hypertension, hypothyroidism, GERD, epilepsy, atrial fibrillation history of encephalopathy, dementia, presented with progressive shortness of breath of 2 days duration. Patient noted to be in respiratory distress and had to be placed on BiPAP in the ED. chest x-ray done in the ED showed pulmonary vascular congestion Patient diagnosis CHF exacerbation and admitted for further management. Hospital Course: Diagnosis Acute hypoxic respiratory failure secondary to acute on chronic CHF exacerbation A-fib with RVR NIDDM2 Hypertension Hyperlipidemia Hypothyroidism GERD Advanced Dementia Hx Seizure disorder Hx diverticulitis Acute hypoxic respiratory failure secondary to acute on chronic CHF exacerbation Initially on continuous BiPAP, later weaned to oxygen by nasal cannula and then to room air. Patient is currently tolerating room air with oxygen saturation around 95%. BiPAP as needed. Patient was not taking Lasix because she was advised to stop taking it on discharge from previous admission. Troponin negative. Patient seen and evaluated by cardiology She was treated with IV Lasix and then transitioned to p.o. Lasix today. She is discharged with oral Lasix 40 mg twice a day. Echo: Normal EF, moderate pulm hypertension. Oropharyngeal dysphagia Speech therapy evaluated patient and she was diagnosed with oropharyngeal dysphagia She has been tolerating pured diet and nectar thickened liquids Aspiration precautions recommended A-fib with RVR Rate controlled. Not on anticoagulation. eliquis was reportedly discontinued during last hospitalization ~1 month ago Continued home metoprolol, amiodarone Cardiology assisted with management. NIDDM2 accu-cheks, SSI Blood glucose readings were within normal range. Hypokalemia Potassium replaced. Hypertension Hyperlipidemia Hypothyroidism GERD Advanced Dementia Hx Seizure disorder Continued home medications. Vital Signs/Physical Exam: Temp Pulse Resp BP Pulse Ox 97.8 F 108 H 20 145/96 H 89 L 06/04/24 11:40 06/04/24 11:40 06/04/24 11:40 06/04/24 11:40 06/04/24 11:40 General: In no apparent distress, Oriented x1 HEENT: Mucous membr. moist/pink Neck: Supple, JVD not distended Respiratory: Clear to auscultation bilaterally, Normal air movement Cardiovascular: No edema, Normal S1 S2, Irregular heart rate/rhythm Gastrointestinal: Normal bowel sounds, Soft and benign, Non-distended Musculoskeletal: No swelling Integumentary: No cyanosis Neurological: Normal speech, Normal strength at 5/5 x4 extr Laboratory Data at Discharge: WBC 7.50 thou/uL (4.3-10.9) 06/04/24 07:47 Hgb 10.8 g/dL (12.0-15.0) L 06/04/24 07:47 Hct 31.5 % (36.0-45.0) L 06/04/24 07:47 Plt Count 177 thou/uL (152-406) 06/04/24 07:47 PT 17.0 SECONDS (9.4-12.5) H 05/31/24 02:26 INR 1.54 05/31/24 02:26 APTT 28.6 SECONDS (24.3-36.9) 05/31/24 02:26 Sodium 138 mEq/L (136-145) 06/04/24 07:47 Potassium 3.8 mEq/L (3.5-5.1) D 06/04/24 07:47 BUN 13 mg/dL (7-18) 06/04/24 07:47 Creatinine 0.84 mg/dL (0.55-1.02) 06/04/24 07:47 Glucose 103 mg/dL (74-106) 06/04/24 07:47 Phosphorus 2.9 mg/dL (2.5-4.9) 06/01/24 06:30 Magnesium 1.9 mg/dL (1.6-2.4) 06/02/24 06:33 Total Bilirubin 1.1 mg/dL (0.2-1.0) H 06/01/24 06:30 AST 25 U/L (15-37) 06/01/24 06:30 ALT 16 U/L (13-56) 06/01/24 06:30 Alkaline Phosphatase 84 U/L (45-117) 06/01/24 06:30 Home Medications: Amiodarone HCl [Cordarone*] 200 mg PO DAILY 04/29/24 Levothyroxine [Synthroid*] 75 mcg PO DAILY 04/29/24 levETIRAcetam [Keppra] 5 ml PO BID 04/29/24 Metoprolol Tartrate 50 mg PO BID #30 04/30/24 Duloxetine HCl 60 mg PO DAILY 05/31/24 Metformin ER [Glucophage ER*] 500 mg PO DAILY 05/31/24 Omeprazole 20 mg PO DAILY 05/31/24 Furosemide [Lasix*] 40 mg PO BIDL tab 06/04/24 Losartan Potassium [Cozaar*] 50 mg PO DAILY 06/04/24 Pantoprazole [Protonix Tab*] 40 mg PO DAILYAC tab 06/04/24 Spironolactone [Aldactone*] 25 mg PO DAILY tab 06/04/24 Physician Discharge Instructions: Animal Killer Resident: Charmaine [facility] [place] [address] P:[phone]/F:[phone] Diet: ADA Activity: Fall precautions Followup: Keiko Lang MD [Primary Care Provider] - 2-3 Days Time spent managing pt's care (in minutes): 35
--- NOTE | 2024-06-05 16:10 | EKG ---
Test Date: 2024-05-31 Test Time: 02:20:10 Finance Specialist: DOUGLAS MEASUREMENT RESULTS: Intervals: Rate: 104 NE: QRSD: 88 QT: 374 QTc: 491 Pyatt: P: NE: QRS: 74 T: -78 INTERPRETIVE STATEMENTS: Atrial fibrillation with premature ventricular or aberrantly conducted complexes Nonspecific T wave abnormality, probably digitalis effect Abnormal ECG Compared to ECG 04/29/2024 03:41:21 T-wave abnormality now present Myocardial infarct finding no longer present Electronically Signed On 06-05-24 15:59:21 IT COMMUNICATIONS MANAGER by Avel Tsai
== END 2024-06-04 15:44 | DRG 291 ==
LOC: ER 01:59 → 4TH 04:42
PROVIDERS: ADMIT Family Medicine; ATTEND Internal Medicine
PROC: 5A09457 Assistance with Respiratory Ventilation, 24-96 Consecutive Hours, Continuous Positive Airway Pressure (ICD-10-PCS; principal; 2024-05-31)
DX: I11.0 Hypertensive heart disease with heart failure (principal); I50.43 Acute on chronic combined systolic (congestive) and diastolic (congestive) heart failure; J96.01 Acute respiratory failure with hypoxia; I48.91 Unspecified atrial fibrillation; E03.9 Hypothyroidism, unspecified; I49.3 Ventricular premature depolarization; E86.0 Dehydration; E87.6 Hypokalemia; K21.9 Gastro-esophageal reflux disease without esophagitis; E11.9 Type 2 diabetes mellitus without complications; G40.909 Epilepsy, unspecified, not intractable, without status epilepticus; F03.90 Unspecified dementia, unspecified severity, without behavioral disturbance, psychotic disturbance, mood disturbance, and anxiety; R29.6 Repeated falls; R13.12 Dysphagia, oropharyngeal phase; Z88.0 Allergy status to penicillin; Z88.5 Allergy status to narcotic agent; Z91.81 History of falling; Z79.84 Long term (current) use of oral hypoglycemic drugs; Z79.890 Hormone replacement therapy; Z79.899 Other long term (current) drug therapy
CPT/HCPCS: 36415; 71045; 80048; 80053; 81001; 82947; 83605; 83735; 83880; 84100; 84132; 84484; 85025; 85610; 85730; 87040; 92526; 92610; 93005; 93306; 94660; 94760; 96374; 99285; J0360; J0696; J1650; J1940; J2270; J2405; J2470; J3475; J3480; J7040

== ENCOUNTER 2024-08-04 21:32 | Emergency (ER) | payer OTHER ==
--- NOTE | 2024-08-04 22:12 | RAD REPORT ---
EXAM: CT brain without contrast HISTORY: ground level fall COMPARISON: 04/28/2024 TECHNIQUE: Multiple contiguous axial images were obtained and a CT of the brain without contrast. Sag ittal and coronal reformats were performed. FINDINGS: No evidence of hydrocephalus, intracranial hemorrhage, or extra-axial fluid collection. The brain is normal in morphology. The calvarium is intact. The visualized paranasal sinuses and mastoid air cells are essentially clear . IMPRESSION: No evidence of acute intracranial abnormality. EXAM: CT of the cervical spine without contrast HISTORY: ground level fall COMPARISON: None TECHNIQUE: Multiple contiguous axial images were obtained in a CT of the cervical spine without contr ast. Sagittal and coronal reformats were performed. FINDINGS: Cervical vertebral body heights are preserved. Superior endplate mild compression deformity at T2, new since the prior exam. No evidence of acute fracture or subluxation.. No degenerative changes are present. No prevertebral soft tissue swelling is seen. The posterior facets are well aligned. Normal alignment of the skull base with the cervical spine is seen. The lung apices are unremarkable. IMPRESSION: Superior endplate mild compression deformity at T2, of indeterminate age, although appears new since prior exam. No other evidence of acute osseous abnormality of the cervical spine.
--- NOTE | 2024-08-04 22:58 | RAD REPORT ---
EXAMINATION: ONE VIEW CHEST XR CLINICAL INDICATION: Female, 84 years old.,GLF TECHNIQUE: Frontal chest projection is submitted. Examination is limited by patient positioning and t echnique. COMPARISON: 05/31/2024. FINDINGS: The lungs are hyperinflated and clear. No pneumothorax or sizable effusion. The heart is normal in s ize. Mediastinal contours are unremarkable. IMPRESSION: No acute intrathoracic abnormalities.
--- NOTE | 2024-08-04 22:59 | RAD REPORT ---
EXAMINATION: XR PELVIS CLINICAL INDICATION: Female, 84 years old. [facility] F Bed Name: TECHNIQUE: AP Pelvis radiograph was obtained. COMPARISON: 04/28/2024 FINDINGS: No evidence of fracture or dislocation. Normal alignment. Mild bilateral hip degenerative c hanges, stable. No evidence of AVN. Soft tissues are unremarkable. IMPRESSION: No acute or significant abnormalities.
--- NOTE | 2024-08-04 23:12 | ER ---
Nurse's Notes [facility] Name: Nikole Mejia Age: 84 yrs Sex: Female : 1940 Arrival Date: 08/04/2024 Time: 21:32 Bed 17 Private MD: Diagnosis: Fall on same level, unspecified Presentation: 08/04 21:47 Chief complaint: EMS states: was met on the door, in her [place] [facility], presented for aa10 unwitnessed fall,patient complained of generalized pain,no specific pain site,patient is oriented x 2, oriented to person and place, disoriented to situation and time. Care prior to arrival: None. Mechanism of Injury: Fall out of bed an unknown distance. Trauma event details: Injury occurred in the county of Injury occurred: in an institution. Injury occurred: August 04, 2024. 21:47 Acuity: YECENIA 3 aa10 21:47 Method Of Arrival: EMS: [facility] aa10 21:57 Coronavirus screen: Client denies travel out of the [place] in the last 14 days. At this aa10 time, the client does not indicate any symptoms associated with coronavirus-19. Ebola Screen: Patient negative for fever greater than or equal to 101.5 degrees Fahrenheit, and additional compatible Ebola Virus Disease symptoms Patient denies exposure to infectious person. Patient denies travel to an Ebola-affected area in the 21 days before illness onset. No symptoms or risks identified at this time. Initial Sepsis Screen: Does the patient have a suspected source of infection?. Initial Sepsis Screen: Does the patient meet any 2 criteria? No. Patient's initial sepsis screen is negative. Risk Assessment: Do you want to hurt yourself or someone else? Patient reports no desire to harm self or others. Onset of symptoms was August 04, 2024. Triage Assessment: 22:13 General: Appears in no apparent distress. comfortable, well groomed, Behavior is calm, aa10 cooperative, appropriate for age, quiet. Trauma Activation: Physician: ED Physician; Name: aniya MUKHERJEE; Notified At: 21:51; Arrived At: Physician: General Surgeon; Name: ; Notified At: 21:51; Arrived At: Physician: Radiology; Name: ; Notified At: 21:51; Arrived At: Physician: Respiratory; Name: ; Notified At: 21:51; Arrived At: Physician: Lab; Name: ; Notified At: 21:51; Arrived At: Historical: - Allergies: 21:58 ACETAMINOPHEN; aa10 21:58 Codeine; aa10 21:58 PENICILLINS; aa10 - PMHx: 21:58 Atrial fibrillation; cognitive communication deficit; diabetes mellitus; DYSPHAGIA; aa10 ENCEPHALOPATHY; epilepsy; GERD; Hypertensive disorder; Hypothyroidism; - Immunization history: Last tetanus immunization: unknown. - Infectious Disease History:: Denies. - Social history:: Smoking status: unknown. Screenin:56 Abuse screen: Denies threats or abuse. Denies injuries from another. Tuberculosis aa10 screening: No symptoms or risk factors identified. 21:58 [facility] ED Fall Risk Assessment (Adult) History of falling in the last 3 months, aa10 including since admission Yes- single mechanical fall (1 pt) Confusion or Disorientation Yes (5 pts) Intoxicated or Sedated No (0 pts) Impaired Gait Yes (1 pt) Mobility Assist Device Used Yes (1 pt) Altered Elimination Yes (1 pt) Score/Fall Risk Level. Nutritional screening: No deficits noted. Primary Survey: 21:52 NO uncontrolled hemorrhage observed. A: The client is awake and alert. The airway is aa10 patent. The client is alert. Airway: patent. Breathing/Chest: Spontaneous respiratory effort, equal unlabored respirations, breath sounds clear bilaterally, regular pattern, symmetrical chest rise and fall. Respiratory effort: spontaneous, Breath sounds: clear, Respiratory pattern: regular, Chest inspection: symmetrical rise and fall of the chest. Circulation: No external hemorrhage present. Regular and strong central pulse, skin warm/dry/normal color. Hemorrhage: No external hemorrhage noted. Pulses: palpable right radial artery, right brachial artery, right femoral artery, left radial artery, left brachial artery, left femoral artery, left popliteal artery, bilateral radial, brachial, femoral, popliteal, posterior tibial, and dorsalis pedis arteries., left carotid pulse and right carotid pulse. Skin color: pink, Skin temperature: warm, dry, Cardiac rhythm: sinus rhythm Heart tones present. Disability Pupils are equal, round, reactive to light and accommodation. Client is alert. Exposure/Environment: All clothing and personal items were removed. Forensic evidence collection is not deemed to be indicated at this time. Items placed in patient belonging bag. There is no evidence of uncontrolled external bleeding. No obvious injuries are noted at this time. A warming method has been applied: A warm blanket has been provided to the patient. Reassessment Breathing: Spontaneous respiratory effort, equal unlabored respirations, breath sounds clear bilaterally, regular pattern with symmetrical chest rise and fall. Respiratory effort Spontaneous Breath sounds Clear Respiratory pattern Regular Chest inspection Symmetrical Circulation: No external hemorrhage noted. Regular and strong central pulse, skin warm/dry/normal color. Disability: Pupils Pupils are equal, round, reactive to light and accomodation. Secondary Survey: 21:54 HEENT: No deficits noted. Head No injury/deformity Face No injury/deformity Eyes: No aa10 injury or deformity noted. Ears: clear bilaterally. Nose: clear to bilateral nares. Throat: No injury or deformity noted. Gastrointestinal: No deficits noted. Abdomen is soft, Bowel sounds present in all quadrants. Palpation No deficit noted. : No deficits noted. Genitalia appear normal. Musculoskeletal: No deficits noted. Range of motion: intact in all extremities. Assessment: 21:51 General: Appears in no apparent distress. comfortable, Behavior is calm, cooperative, aa10 appropriate for age. Pain: Denies pain. Complains of pain in head, neck, chest, abdomen, pelvis, right arm, left arm, right leg, left leg, back of neck, back of left arm, back of right arm, posterior chest, buttocks, back of left leg, back of right leg and back. Neuro: No deficits noted. Level of Consciousness is awake, obeys commands, Oriented to person, place. Respiratory: No deficits noted. Airway is patent. GI: No deficits noted. Abdomen is flat, non-distended. 23:43 Reassessment: patient has been discharged, she is pending EMS transfer. aa10 23:52 General: per nurse at [facility], no transportation available until lg3 morning and the hospital needs to provide transportation back to facility. Notified nurse of facility's responsibility to provide transportation. Pending call back from facility BRITTANY. 08/05 00:31 General: Per BRITTANY Tan at [place], facility is not responsible for transportation and lg3 it is the ER's responsibility for getting the patient back to facility. I Explained that the ER will not be arranging transportation of their patient. BRITTANY then stated that she does not have time to find transportation due to being very busy and may be able to call [employer] at "some point". I provided contact information for other transport companies and was told that she was unable to call due to having a transportation contract with [employer].. 01:20 Reassessment: Patient appears in no apparent distress at this time. No changes from aa10 previously documented assessment. Patient and/or family updated on plan of care and expected duration. Pain level reassessed. Patient is alert, oriented x 3, equal unlabored respirations, skin warm/dry/pink. Patient states feeling better. Patient states symptoms have improved. Vital Signs: 08/04 21:55 BP 121 / 84; Pulse 82; Resp 20; Temp 99; Pulse Ox 99% on R/A; aa10 23:45 BP 133 / 74; Pulse 67; Resp 20; Temp 99; Pulse Ox 98% on R/A; aa10 08/05 01:18 BP 124 / 73; Pulse 65; Resp 20; Temp 98.6; Pulse Ox 96% on R/A; aa10 [place] Coma Score: 08/04 21:55 Eye Response: spontaneous(4). Motor Response: obeys commands(6). Verbal Response: aa10 oriented(5). Total: 15. Trauma Score (Adult): 21:55 Eye Response: spontaneous(1); Verbal Response: oriented(1); Motor Response: obeys aa10 commands(2); Systolic BP: > 89 mm Hg(4); Respiratory Rate: 10 to 29 per min(4); Daniela Score: 15; Trauma Score: 12 ED Course: 21:37 Patient arrived in ED. ec2 21:37 James Medrano MD is Attending Physician. ec2 21:51 Triage completed. aa10 21:56 Patient has correct armband on for positive identification. Allergy band placed. Fall aa10 risk band placed. Placed in gown. Bed in low position. Call light in reach. Side rails up X2. Adult w/ patient. 21:56 No provider procedures requiring assistance completed. Inserted saline lock: 20 gauge aa10 in right. 21:57 Patient maintains SpO2 saturation greater than 95% on room air. aa10 21:58 Thermoregulation: warm blanket given to patient. aa10 21:59 Arm band placed on right wrist. Patient placed in the treatment room. aa10 21:59 Provided Education on: ABOUT PLAN OF CARE. aa10 22:03 CT Head C Spine In Process Unspecified. EDMS 22:23 CXR XRAY In Process Unspecified. EDMS 22:23 Pelvis XRAY In Process Unspecified. EDMS 23:44 IV discontinued. aa10 Administered Medications: 23:29 Drug: MetoCLOPramide PO 10 mg PO once Route: PO; aa10 23:42 Follow up: Response: No adverse reaction; No change in condition aa10 23:30 Drug: Methocarbamol PO 500 mg PO once Route: PO; aa10 23:42 Follow up: Response: No adverse reaction; Marked relief of symptoms aa10 Medication: 21:58 VIS not applicable for this client. aa10 Intake: 21:55 PO: 0ml; IV: 0ml; Tubes: 0ml (); Total: 0ml. aa10 Output: 21:55 Urine: 0ml; Gastric: 0ml; Stool: 0; EBL: 0ml; Drainage: 0ml; Other: 0; Total: 0ml. aa10 Outcome: 21:59 Patient's length of stay was not longer than 2 hours. aa10 23:12 Discharge ordered by . ec2 23:43 Discharged to [facility]. Report called to [facility] RN aa 23:43 Condition: good 23:43 Discharge instructions given to EMS, Instructed on discharge instructions, 08/05 01:20 Discharged to [facility]. Report called to report called to Bere FINK at [address], patient was picked up by [facility], she was conscious,alert and oriented at baseline. 01:21 Condition: good aa10 01:21 Discharge instructions given to EMS, 01:23 Patient left the ED. aa10 Signatures: Dispatcher [employer] Liza Lara RN RN lg3 James Medarno MD MD ec2 Huseyin Crawford RN RN aa10
--- NOTE | 2024-08-04 23:13 | EDPHYS ---
Physician Documentation [facility] Name: Nikole Mejia Age: 84 yrs Sex: Female : 1940 Arrival Date: 08/04/2024 Time: 21:32 Bed 17 Private MD: ED Physician James Medrano HPI: 08/04 21:38 This 84 yrs old Female presents to ER via Unassigned with complaints of ec2 ground level fall. 21:38 Patient arrives today for evaluation after a GLF. Reports that she had a fall, no loc, ec2 not on blood thinners, w/ complaints of general body pain. hx of dementia.. Historical: - Allergies: 21:58 ACETAMINOPHEN; aa10 21:58 Codeine; aa10 21:58 PENICILLINS; aa10 - PMHx: 21:58 Atrial fibrillation; cognitive communication deficit; diabetes mellitus; DYSPHAGIA; aa10 ENCEPHALOPATHY; epilepsy; GERD; Hypertensive disorder; Hypothyroidism; - Immunization history: Last tetanus immunization: unknown. - Infectious Disease History:: Denies. - Social history:: Smoking status: unknown. ROS: 21:40 Constitutional: as per hpi ec2 Exam: 21:40 Constitutional: GEN: No acute distress HEENT: -Head: no deformities -Eyes: EOMI CV: ec2 regular rate LUNGS: no respiratory distress ABD: non-tender SKIN: no wounds appreciated MSK: No C/T/L spine deformities RUE w/o bony deformity LUE w/o bony deformity RLE w/o bony deformity LLE w/o bony deformity NEURO: moves all extremities equally, GCS 14 (E4, V4, M6) Vital Signs: 21:55 BP 121 / 84; Pulse 82; Resp 20; Temp 99; Pulse Ox 99% on R/A; aa10 23:45 BP 133 / 74; Pulse 67; Resp 20; Temp 99; Pulse Ox 98% on R/A; aa10 08/05 01:18 BP 124 / 73; Pulse 65; Resp 20; Temp 98.6; Pulse Ox 96% on R/A; aa10 [place] Coma Score: 08/04 21:55 Eye Response: spontaneous(4). Motor Response: obeys commands(6). Verbal Response: aa10 oriented(5). Total: 15. Trauma Score (Adult): 21:55 Eye Response: spontaneous(1); Verbal Response: oriented(1); Motor Response: obeys aa10 commands(2); Systolic BP: > 89 mm Hg(4); Respiratory Rate: 10 to 29 per min(4); [place] Score: 15; Trauma Score: 12 MDM: 21:37 Medical Screening Exam initiated ec2 21:40 Data reviewed: vital signs, nurses notes. ED course: Patient arrives today for ec2 evaluation after a ground-level fall. Examination reveals no focal deficits, moves all extremities appropriately, no focal deformities appreciated. Will obtain CT scan of the head and C-spine given the patient's age and dementia, will obtain chest x-ray and hip x-ray as well. Differential diagnosis considered include intracranial brain bleed, C-spine fracture, pelvis fracture.. 23:09 ED course: CT imaging comments about possible T-spine fracture. Patient without any ec2 tenderness at this location. Suspect subacute. 23:12 ED course: On reassessment patient is resting comfortably. Will discharge home. Return ec2 precautions given.. 08/04 21:37 Order name: CXR XRAY; Complete Time: 23:08 ec2 08/04 21:37 Order name: Pelvis XRAY; Complete Time: 23:08 ec2 08/04 21:37 Order name: CT Head C Spine; Complete Time: 23:08 ec2 Administered Medications: 23:29 Drug: MetoCLOPramide PO 10 mg PO once Route: PO; aa10 23:42 Follow up: Response: No adverse reaction; No change in condition aa10 23:30 Drug: Methocarbamol PO 500 mg PO once Route: PO; aa10 23:42 Follow up: Response: No adverse reaction; Marked relief of symptoms aa10 Disposition Summary: 08/04/24 23:12 Discharge Ordered Notes: Location: Home ec2 Condition: Stable ec2 Diagnosis - Fall on same level, unspecified ec2 Followup: ec2 - With: Private Physician - When: - Reason: Re-evaluation by your physician Discharge Instructions: - Discharge Summary Sheet ec2 - Fall Prevention in the Home, Adult, [id number] ec2 Forms: - Medication Reconciliation Form ec2 - Antibiotic Education ec2 - Prescription Opioid Use ec2 - Patient Portal Instructions ec2 - Leadership Thank You Letter ec2 Signatures: Dispatcher [employer] James Engel MD MD ec2 Huseyin Crawford, RN RN aa10
[2024-08-04] MEDS ORDERED: methocarbamoL 500 MG TAB ONE (23:28)
[2024-08-04] MEDS ORDERED: METOCLOPRAMIDE 5 MG TAB ONE (23:29)
[2024-08-05 10:45] VITALS: BP 124/73; TEMP 98.6; O2SAT 96
== END 2024-08-05 01:23 | disposition home or self-care (01) ==
LOC: ER 21:32
DX: R52 Pain, unspecified (principal); W18.30XA Fall on same level, unspecified, initial encounter
CPT/HCPCS: 70450; 71045; 72125; 72170

== ENCOUNTER 2024-10-01 21:59 | Emergency (ER) | payer OTHER ==
--- NOTE | 2024-10-02 01:23 | EDPHYS ---
Physician Documentation [facility] Name: Nikole Mejia Age: 84 yrs Sex: Female : 1940 Arrival Date: 10/01/2024 Time: 21:59 Bed 14 Private MD: ED Physician Hair Alvarez HPI: 10/01 22:33 This 84 yrs old Female presents to ER via EMS with complaints of head injury. sp3 22:33 84-year-old female with history of atrial fibrillation, cognitive dysfunction, sp3 dementia, diabetes, encephalopathy in the past now presents to the ED with chief complaint of fall out of wheelchair as reported by detention staff who activated EMS bring her here for evaluation. No bleeding noted or abnormal vital signs noted by detention or EMS., ROS, history and physical limited secondary to dementia.. Historical: - Allergies: 22:32 ACETAMINOPHEN; dd2 22:32 Codeine; dd2 22:32 PENICILLINS; dd2 - PMHx: 22:32 Atrial fibrillation; cognitive communication deficit; diabetes mellitus; DYSPHAGIA; dd2 ENCEPHALOPATHY; epilepsy; GERD; Hypertensive disorder; Hypothyroidism; - PSHx: 22:32 Unable to Obtain; dd2 - Immunization history:: Adult Immunizations unknown. - Infectious Disease History:: NONE NOTED ON [place] PAPERWORK. - Social history:: Smoking status: unknown. - [facility] . ROS: 22:35 Unable to obtain ROS due to baseline dementia, sp3 Exam: 22:35 Constitutional: This is a well developed, well nourished patient who is awake, alert, sp3 and in no acute distress. Head/Face: Normocephalic, atraumatic. Eyes: Pupils equal round and reactive to light, extra-ocular motions intact. Lids and lashes normal. Conjunctiva and sclera are non-icteric and not injected. Cornea within normal limits. Periorbital areas with no swelling, redness, or edema. Neck: Trachea midline, no thyromegaly or masses palpated, and no cervical lymphadenopathy. Supple, full range of motion without nuchal rigidity, or vertebral point tenderness. No Meningismus. Chest/axilla: Normal chest wall appearance and motion. Nontender with no deformity. No lesions are appreciated. Cardiovascular: Regular rate and rhythm with a normal S1 and S2. No gallops, murmurs, or rubs. Normal PMI, no JVD. No pulse deficits. Respiratory: Lungs have equal breath sounds bilaterally, clear to auscultation and percussion. No rales, rhonchi or wheezes noted. No increased work of breathing, no retractions or nasal flaring. Vital Signs: 22:19 BP 116 / 54; Pulse 59; Resp 16; Temp 98.1; Pulse Ox 97% on R/A; Pain 0/10; dd2 22:42 BP 101 / 54; Pulse 51; Resp 16; Pulse Ox 100% on R/A; dd2 23:39 BP 98 / 51; Pulse 56; Resp 16; Pulse Ox 100% on R/A; dd2 10/02 01:02 BP 103 / 56; Pulse 52; Resp 16; Pulse Ox 98% on R/A; dd2 01:02 BP 99 / 52; Pulse 54; Resp 16; Pulse Ox 99% on R/A; dd2 10/01 22:19 Pain Scale: Non-Verbal dd2 MDM: 10/01 22:19 Medical Screening Exam initiated sp3 22:35 Data reviewed: vital signs, nurses notes, EMS record, old medical records, radiologic sp3 studies. ED course: 84-year-old female with PMH above now with reported head injury. No signs on physical exam of any injury, laceration, abrasion, hematoma or swelling. Patient presumed to be at baseline mental status. Will obtain CT scan of the head and C-spine and if negative discharge back to detention facility. Vital signs remain normal here in the ED.. 10/02 01:21 ED course: CT preliminarily read by me which demonstrates no acute traumatic sp3 abnormality. Currently IT systems are down and CT images are not crossing over to radiology. Hospitals on diversion. We will discharge patient to detention and intervene if indicated based on final radiology read.. 10/01 22:23 Order name: CT Head C Spine; Complete Time: 03:29 sp3 Administered Medications: No medications were administered Disposition Summary: 10/02/24 01:22 Discharge Ordered Notes: Location: Home sp3 Condition: Stable sp3 Diagnosis - Closed head injury, fall sp3 Followup: sp3 - With: Private Physician - When: Upon discharge from the Emergency Department - Reason: Recheck today's complaints Discharge Instructions: - Discharge Summary Sheet sp3 - Head Injury, Adult sp3 Forms: - Medication Reconciliation Form sp3 - Antibiotic Education sp3 - Prescription Opioid Use sp3 - Patient Portal Instructions sp3 - Leadership Thank You Letter sp3 Signatures: Dispatcher [employer] EDMS Hair Alvarez MD MD sp3 TRAVIS ESPINOSA RN RN dd2 Corrections: (The following items were deleted from the chart) 10/01 22:23 22:23 Head C Spine MPR Wo Con+CT.RAD.BRZ ordered. EDMS EDMS
--- NOTE | 2024-10-02 01:23 | ER ---
Nurse's Notes [facility] Name: Nikole Mejia Age: 84 yrs Sex: Female : 1940 Arrival Date: 10/01/2024 Time: 21:59 Bed 14 Private MD: Diagnosis: Closed head injury, fall Presentation: 10/01 22:19 Chief complaint: EMS states: LUCI[place]O [place] RN REPORTED THAT PT WAS SITTING IN THE dd2 WHEELCHAIR AND FELL SIDEWAYS AND HIT THE BACK OF HEAD. DENIES BLOOD THINNERS, DENIES LOC. Coronavirus screen: At this time, the client does not indicate any symptoms associated with coronavirus-19. Ebola Screen: No symptoms or risks identified at this time. Initial Sepsis Screen: Does the patient meet any 2 criteria? No. Patient's initial sepsis screen is negative. Does the patient have a suspected source of infection? No. Patient's initial sepsis screen is negative. Risk Assessment: Do you want to hurt yourself or someone else? Patient reports no desire to harm self or others. Onset of symptoms was October 01, 2024. Care prior to arrival: Glucose check: 170. 22:19 Method Of Arrival: EMS: [facility] dd2 22:19 Acuity: YECENIA 3 dd2 Triage Assessment: 22:32 General: Appears in no apparent distress. Behavior is calm, cooperative. Pain: Denies dd2 pain. EENT: No deficits noted. No signs and/or symptoms were reported regarding the EENT system. Neuro: Level of Consciousness is awake, alert, obeys commands, Oriented to none BASELINE FOR PT. SEE HX. Cardiovascular: No deficits noted. JVD is absent Patient's skin is warm and dry. Respiratory: No deficits noted. Airway is patent Respiratory effort is even, unlabored, Respiratory pattern is regular, symmetrical. GI: No deficits noted. No signs and/or symptoms were reported involving the gastrointestinal system. Bowel sounds present X 4 quads. Abd is soft and non tender X 4 quads. : No deficits noted. Derm: No deficits noted. No signs and/or symptoms reported regarding the dermatologic system. Skin is intact, Skin is dry, Skin is normal, Skin temperature is warm. Musculoskeletal: Circulation, motion, and sensation intact. Historical: - Allergies: 22:32 ACETAMINOPHEN; dd2 22:32 Codeine; dd2 22:32 PENICILLINS; dd2 - PMHx: 22:32 Atrial fibrillation; cognitive communication deficit; diabetes mellitus; DYSPHAGIA; dd2 ENCEPHALOPATHY; epilepsy; GERD; Hypertensive disorder; Hypothyroidism; - PSHx: 22:32 Unable to Obtain; dd2 - Immunization history:: Adult Immunizations unknown. - Infectious Disease History:: NONE NOTED ON [place] PAPERWORK. - Social history:: Smoking status: unknown. - History obtained from: EMS, [place] [facility] . Screenin:43 [facility] ED Fall Risk Assessment (Adult) History of falling in the last 3 months, dd2 including since admission Yes- single mechanical fall (1 pt) Confusion or Disorientation Yes (5 pts) Intoxicated or Sedated No (0 pts) Impaired Gait Yes (1 pt) Mobility Assist Device Used Yes (1 pt) Altered Elimination Yes (1 pt) Score/Fall Risk Level 3 or more points = High Risk Oriented to surroundings, Maintained a safe environment, Educated pt \T\ family on fall prevention, incl call for assistance when getting out of bed, Assessed \T\ reinforced patient's understanding of fall precautions, Hourly rounding (assess needs \T\ fall precautionary measures) done, Used ambulatory aids as needed (educated on \T\ assisted with), Activated bed/chair alarm. Abuse screen: Denies threats or abuse. Denies injuries from another. Nutritional screening: No deficits noted. Tuberculosis screening: No symptoms or risk factors identified. Assessment: 22:36 Reassessment: SEE TRIAGE ASSESSMENT FOR FULL ASSESSMENT. dd2 10/02 02:00 Reassessment: Notified Jakub blanco [facility] of [facility] Vital Signs: 10/01 22:19 BP 116 / 54; Pulse 59; Resp 16; Temp 98.1; Pulse Ox 97% on R/A; Pain 0/10; dd2 22:42 BP 101 / 54; Pulse 51; Resp 16; Pulse Ox 100% on R/A; dd2 23:39 BP 98 / 51; Pulse 56; Resp 16; Pulse Ox 100% on R/A; dd2 10/02 01:02 BP 103 / 56; Pulse 52; Resp 16; Pulse Ox 98% on R/A; dd2 01:02 BP 99 / 52; Pulse 54; Resp 16; Pulse Ox 99% on R/A; dd2 10/01 22:19 Pain Scale: Non-Verbal dd2 ED Course: 10/01 22:12 Patient arrived in ED. vc1 22:12 Hair Alvarez MD is Attending Physician. sp3 22:13 TRAVIS ESPINOSA, RN is Primary Nurse. dd2 22:32 Triage completed. dd2 22:32 Arm band placed on right wrist. Patient placed in an exam room, on a stretcher, on dd2 pulse oximetry. 22:43 Patient has correct armband on for positive identification. Bed in low position. Call dd2 light in reach. Side rails up X2. Client placed on continuous cardiac and pulse oximetry monitoring. NIBP monitoring applied. Door closed. Noise minimized. Warm blanket given. Pillow given. Verbal reassurance given. 22:43 No provider procedures requiring assistance completed. Patient maintains SpO2 dd2 saturation greater than 95% on room air. 23:40 CT Head C Spine In Process Unspecified. EDMS 10/02 02:04 Patient did not have IV access during this emergency room visit. dd2 03:35 Provided Education on: D/C INSTRUCTIONS TO EMS AND JAKUB AT [facility]. dd2 Administered Medications: No medications were administered Medication: 10/01 22:43 VIS not applicable for this client. dd2 Outcome: 10/02 01:22 Discharge ordered by . sp3 03:35 Discharged to fdc. Report called to [place] dd2 03:35 Condition: stable 03:35 Discharge instructions given to fdc, EMS, Instructed on discharge instructions, follow up and referral plans. Demonstrated understanding of instructions, follow-up care, 03:36 Patient left the ED. dd2 Signatures: Dispatcher [employer] [facility] Hair Alvarez MD MD sp3 Katiana Todd RN RN vc1 TRAVIS ESPINOSA, ALEKS RN dd2
--- NOTE | 2024-10-02 03:25 | RAD REPORT ---
EXAM: CT brain without contrast HISTORY: fall out of wheelchair;Trauma COMPARISON: 08/04/2024 TECHNIQUE: Multiple contiguous axial images were obtained and a CT of the brain without contrast. Sag ittal and coronal reformats were performed. FINDINGS: No evidence of hydrocephalus, intracranial hemorrhage, or extra-axial fluid collection. Right parietal through lateral temporal encephalomalacia, stable, suggesting sequelae of remote ische juan. Advanced brain atrophy and other advanced periventricular and deep white matter hypodensities, nonspecific, but suggestive of chronic microvascular ischemic changes present. The calvarium is intact. The visualized paranasal sinuses and mastoid air cells are essentially clear . IMPRESSION: No evidence of acute intracranial abnormality. Stable chronic findings as above. EXAM: CT of the cervical spine without contrast HISTORY: fall out of wheelchair;Trauma COMPARISON: None TECHNIQUE: Multiple contiguous axial images were obtained in a CT of the cervical spine without contr ast. Sagittal and coronal reformats were performed. FINDINGS: The vertebral bodies demonstrate normal height and alignment. Superior endplate compression deformity with underlying sclerosis involving T2 and to lesser extent T1, stable. No evidence of acute fracture or subluxation.. Diffuse osteopenia limits evaluation. Mild to moderate degenerative c hanges contributing to the degrees of neural foraminal narrowing, most pronounced at C3-4 and C5-6 bilaterally. No prevertebral soft tissue swelling is seen. The posterior facets are well aligned. Normal alignment of the skull base with the cervical spine is seen. The lung apices are unremarkable. IMPRESSION: No evidence of acute osseous abnormality of the cervical spine. Stable chronic findings including T1 and T2 compression deformities, and chronic degenerative changes .
[2024-10-02 03:40] VITALS: TEMP 98.1
[2024-10-02 03:45] VITALS: BP 99/52; O2SAT 99
== END 2024-10-02 03:36 | disposition home or self-care (01) ==
LOC: ER 21:59
DX: S09.90XA Unspecified injury of head, initial encounter (principal); W05.0XXA Fall from non-moving wheelchair, initial encounter
CPT/HCPCS: 70450; 72125; 99284

== ENCOUNTER 2025-03-27 19:35 | Emergency (ER) | payer OTHER ==
[2025-03-27] MEDS ORDERED: BACI/NEOMYCIN/POLY OINT 15GM TOP ONE (20:04)
--- NOTE | 2025-03-27 20:39 | RAD REPORT ---
EXAM: CT brain without contrast HISTORY: Fall with head injury COMPARISON: December 2024 TECHNIQUE: Multiple contiguous axial images were obtained and a CT of the brain without contrast.. Sagittal and coronal reconstruction performed. Automated exposure control, adjustment of the mA and/or kV according to patient size, and/or iterative reconstruction. Unless otherwise specified, incidental f indings do not require dedicated imaging follow-up FINDINGS: Left frontal scalp hematoma. 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 Mild to moderate cere bral atrophy. Mild to moderate low-density paraventricular, deep and subcortical white matter likely secondary to i schemic changes from small vessel disease. No fluid within the visualized sinuses or mastoids noted. IMPRESSION: No acute intracranial abnormality noted. If the patient continues to have symptoms to suggest an acute intracranial abnormality then MRI of th e brain would be recommended.
--- NOTE | 2025-03-27 21:02 | EDPHYS ---
Physician Documentation [facility] Name: Nikole Mejia Age: 84 yrs Sex: Female : 1940 Arrival Date: 03/27/2025 Time: 19:35 Bed 12 Private MD: ED Physician Sandip Sims HPI: 03/27 19:38 This 84 yrs old Female presents to ER via Unassigned with complaints of head sp4 injury . Historical: - Allergies: 19:40 Codeine; me1 19:40 PENICILLINS; me1 - PMHx: 19:40 Atrial fibrillation; diabetes mellitus; Hypothyroidism; Gastroesophageal reflux me1 disease; Seizure; Depressive disorder; Congestive heart failure; - Immunization history:: Adult Immunizations up to date. - Infectious Disease History:: Denies. - Social history:: Smoking status: Patient denies any tobacco usage or history of. Vital Signs: 19:38 BP 187 / 93; Pulse 65; Resp 15; Temp 97.9; Pulse Ox 98% ; me1 21:08 BP 174 / 89; Pulse 67; Resp 17; Temp 97.9; Pulse Ox 99% ; ha1 [place] Coma Score: 21:00 Eye Response: spontaneous(4). Motor Response: obeys commands(6). Verbal Response: sp4 oriented(5). Total: 15. MDM: 19:39 Medical Screening Exam initiated sp4 21:00 ED course: FINDINGS: Left frontal scalp hematoma. 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 Mild to moderate cerebral atrophy. Mild to moderate low-density paraventricular, deep and subcortical white matter likely secondary to ischemic changes from small vessel disease. No fluid within the visualized sinuses or mastoids noted. IMPRESSION: No acute intracranial abnormality noted. . 03/27 19:39 Order name: CT Head Brain wo Cont; Complete Time: 20:58 sp4 03/27 19:39 Order name: Wound Care: clean abrasion to forehead; Complete Time: 21:06 sp4 Administered Medications: 21:06 Drug: Vwcryegx-Hhnwephhnn-Uwrkjnhhj Topical Ointment 1 application Topical once Route: ha1 Topical; Site: forehead; 21:08 Follow up: Response: No adverse reaction ha1 Disposition Summary: 03/27/25 21:02 Discharge Ordered Notes: Location: Home sp4 Problem: new sp4 Symptoms: have improved sp4 Condition: Stable sp4 Diagnosis - Unspecified injury of head, initial encounter sp4 - Acute fall at the care home, acute left forehead hematoma, acute left forehead sp4 abrasion, closed head injury Followup: sp4 - With: Private Physician - When: As needed - Reason: Recheck today's complaints Discharge Instructions: - Discharge Summary Sheet sp4 - Head Injury, Adult, [id number] sp4 Forms: - Patient Portal Instructions sp4 Addendum: 03/29/2025 01:55 Addendum: Patient presents with acute fall at the care home. Patient is on Eliquis s p4 twice a day. Patient exam positive for acute forehead hematoma with small abrasion. Otherwise examination unremarkable, mild to moderate dementia. CT head is unremarkable. Patient stable for discharge back to care home. Head injury instructions sent to the care home with the patient.. Signatures: Dispatcher [employer] Mary Merchant, ALEKS RN ha1 Sandip Sims MD MD sp4 Sonal Espinoza RN RN me1
--- NOTE | 2025-03-27 21:02 | ER ---
Nurse's Notes [facility] Name: Nikole Mejia Age: 84 yrs Sex: Female : 1940 Arrival Date: 03/27/2025 Time: 19:35 Bed 12 Private MD: Diagnosis: Unspecified injury of head, initial encounter;Acute fall at the shelter, acute left forehead hematoma, acute left forehead abrasion, closed head injury Presentation: 03/27 19:38 Chief complaint: EMS states: toned out to [facility] for slip and fall. Patient is me1 nonambulatory and got up from her WC and fell. Bruise with swelling noted to left forehead. Denies pain. A\T\Ox2 at baseline. No LOC. Takes Eliquis. Coronavirus screen: Vaccine status: Patient reports receiving the 2nd dose of the covid vaccine. Ebola Screen: No symptoms or risks identified at this time. Initial Sepsis Screen: Does the patient meet any 2 criteria? No. Patient's initial sepsis screen is negative. Does the patient have a suspected source of infection? No. Patient's initial sepsis screen is negative. Risk Assessment: Do you want to hurt yourself or someone else? Patient reports no desire to harm self or others. Onset of symptoms was March 27, 2025 at 19:00. 19:38 Method Of Arrival: [place] [facility] [place] Acuity: YECENIA 4 me1 Triage Assessment: 19:40 General: Appears in no apparent distress. well groomed, well developed, well nourished, me1 Behavior is calm, cooperative, appropriate for age. Pain: Denies pain. EENT: No signs and/or symptoms were reported regarding the EENT system. Neuro: Level of Consciousness is awake, alert, obeys commands, Oriented to person, situation. Cardiovascular: Patient's skin is warm and dry. Respiratory: Airway is patent Respiratory effort is even, unlabored, Respiratory pattern is regular, symmetrical. GI: No signs and/or symptoms were reported involving the gastrointestinal system. : No signs and/or symptoms were reported regarding the genitourinary system. Derm: Skin is healthy with good turgor, Skin is normal, Bruising that is bright red, on forehead. Musculoskeletal: Circulation, motion, and sensation intact. Range of motion: intact in all extremities, nonambulatory Reports generalized weakness, nonambulatory at baseline. Injury Description: fall. Historical: - Allergies: 19:40 Codeine; me1 19:40 PENICILLINS; me1 - PMHx: 19:40 Atrial fibrillation; diabetes mellitus; Hypothyroidism; Gastroesophageal reflux me1 disease; Seizure; Depressive disorder; Congestive heart failure; - Immunization history:: Adult Immunizations up to date. - Infectious Disease History:: Denies. - Social history:: Smoking status: Patient denies any tobacco usage or history of. Screenin:07 [facility] ED Fall Risk Assessment (Adult) History of falling in the last 3 months, ha1 including since admission No falls in past 3 months (0 pts) Confusion or Disorientation Yes (5 pts) Intoxicated or Sedated No (0 pts) Impaired Gait Yes (1 pt) Mobility Assist Device Used Yes (1 pt) Altered Elimination No (0 pt) Score/Fall Risk Level 0 - 2 = Low Risk Maintained a safe environment, Provided non-skid footwear, Hourly rounding (assess needs \T\ fall precautionary measures) done. Abuse screen: Denies threats or abuse. Nutritional screening: No deficits noted. Tuberculosis screening: No symptoms or risk factors identified. Assessment: 21:07 General: See triage assessment. ha1 21:13 Reassessment: gave report to Renetta at [facility]. Renetta is arranging [facility] transportation to get patient back to [place]. Vital Signs: 19:38 BP 187 / 93; Pulse 65; Resp 15; Temp 97.9; Pulse Ox 98% ; me1 21:08 BP 174 / 89; Pulse 67; Resp 17; Temp 97.9; Pulse Ox 99% ; ha1 [place] Coma Score: 21:00 Eye Response: spontaneous(4). Motor Response: obeys commands(6). Verbal Response: sp4 oriented(5). Total: 15. ED Course: 19:38 Patient arrived in ED. vk 19:38 Sandip Sims MD is Attending Physician. sp4 19:40 Triage completed. me1 19:40 Arm band placed on Patient placed in an exam room. me1 20:05 CT Head Brain wo Cont In Process Unspecified. EDMS 21:07 Patient has correct armband on for positive identification. Bed in low position. Call ha1 light in reach. Side rails up X2. Provided Education on: POC. Verbalized understanding.. Client placed on continuous cardiac and pulse oximetry monitoring. NIBP monitoring applied. Pulse ox on. NIBP on. 21:07 No provider procedures requiring assistance completed. Patient did not have IV access ha1 during this emergency room visit. 21:18 Mary Palafox, RN is Primary Nurse. ha1 Administered Medications: 21:06 Drug: Pjsdrkyo-Nwunbmkspc-Ujtghsnkw Topical Ointment 1 application Topical once Route: ha1 Topical; Site: forehead; 21:08 Follow up: Response: No adverse reaction ha1 Medication: 21:07 VIS not applicable for this client. ha1 Outcome: 21:02 Discharge ordered by MD. hou 22:34 Patient left the ED. kl Signatures: Dispatcher [employer] Joseline Arteaga RN RN kl Ayala, Heidy, RN RN Sandip Jon MD MD sp4 Sonal Espinoza RN RN wi1 Heidy Artis
[2025-03-27 22:38] VITALS: TEMP 97.9
[2025-03-27 22:40] VITALS: BP 174/89; O2SAT 99
== END 2025-03-27 22:34 | disposition home or self-care (01) ==
LOC: ER 19:35
DX: S00.81XA Abrasion of other part of head, initial encounter (principal); W18.30XA Fall on same level, unspecified, initial encounter; Y92.129 Unspecified place in nursing home as the place of occurrence of the external cause
CPT/HCPCS: 70450; 99283